=== PATIENT | male | born 1955 | race Caucasian/White ===

== ENCOUNTER 2018-04-14 08:18 | Emergency (ER) | payer BC ==
--- OUTSIDE RECORDS SUMMARY | 2018-04-14 08:20 | XMS REPORT | Summary of Care ---
:1955 Author Organization [facility] Outpatient Imaging [place] Address [address] [place], [place] [address]- Encounter HQ Encntr_alias(FIN) [id number] Date(s): 06/11/16 - 06/11/16 [facility] Outpatient [address] [phone] Discharge Disposition: Home or Self Care Attending Physician: Richard Figueroa MD Vital Signs No data available for this section Problem List No data available for this section Allergies, Adverse Reactions, Alerts No data available for this section Medications No data available for this section Results No data available for this section Immunizations No data available for this section Procedures No data available for this section Social History No data available for this section Assessment and Plan No data available for this section
--- OUTSIDE RECORDS SUMMARY | 2018-04-14 08:20 | XMS REPORT | Summary of Care ---
:1955 Author Encounter HQ Nedrantr_kristian(MARIAM) [id number] Date(s): 12/03/14 - 12/03/14 [facility] Outpatient Imaging - [address] [phone] Discharge Disposition: Home Physician Attending: Richard Figueroa MD Vital Signs No data [...]
--- OUTSIDE RECORDS SUMMARY | 2018-04-14 08:20 | XMS REPORT | Summary of Care ---
:1955 Author Organization [facility] Outpatient Imaging [place] Address [address] [place], [place] [id number]- Encounter HQ Encntr_alias(FIN) [id number] Date(s): 01/15/17 - 01/15/17 [facility] Outpatient Imaging [address], [facility] [address] [place] [address]- [phone] Discharge Disposition: Home or Self Care Attending [...]
--- OUTSIDE RECORDS SUMMARY | 2018-04-14 08:20 | XMS REPORT | Continuity of Care Document ---
:1955 Author Organization Interface Problems Problem Status Onset Classification Date Comments Source Date Reported M45.9 - Active 06/09/20 [facility] ANKYLOSING 16 [place] SPONDYLITIS OF UNSP Medications Medication Details Route Status Patient Ordering Order Source Instructions Provider Date Allergies, Adverse Reactions, Alerts Substance Category Reaction Severity Reaction Status Date Comments Source type Reported Immunizations Immunization Date Given Site Status Last Updated Comments Source Results Order Results Value Reference Date Interpretation Comments Source Name Range Spine Spine REASON FOR EXAM: M45.9. Ankylosing spondylitis of unspecified sites in spine. 01/15 - [facility] lumbar 2 lumbar - Araseli or 3 or 3 views DX views DX COMPARISON: Lumbar spine x-ray 12/03/2014 and 02/26/2011. Read by: Richard Carvajal MD Dictated Date/time: 01/15/17 18:53 Electronically Signed by: Richard Carvajal MD 01/15/17 19:07 FINAL REPORT FINDINGS: AP and lateral views of lumbar spine. 3 images are submitted. There are 5 lumbar vertebral bodies. The lumbar vertebral bodies are normally aligned. There is mild posterior disc space narrowing at L1-L2. There is minimal posterior disc space narrowing at L2-L3 and L3-L4. There are tiny lateral marginal osteophytes from L1 through L3. There are no de monstrable marginal syndesmophytes. There is no compression deformity. The pedicles appear intact. There is ankylosis of the bilateral sacroiliac joints. Also noted are surgical clips in the right upper abdomen, a bowel anastomotic staple line in the left abdomen, minimal aortic calcification and a calcified pelvic phlebolith. IMPRESSION: 1. There has been no significant interval change from 12/03/2014. 2. Mild degenerative changes of the lumbar spine as described above. 3. Bilateral sacroiliac joint ankylosis. SL: 15 Pelvis AP Pelvis AP REASON FOR EXAM: M45.9. Ankylosing spondylitis of unspecified sites in spine. 01/15 - [facility] DX /2016 - [place]eli COMPARISON: AP view of the pelvis 12/03/2014 and 02/26/2011. Read by: Richard Carvajal MD Dictated Date/time: 01/15/17 18:45 Electronically Signed by: Richard Carvajal MD 01/15/17 18:52 FINAL REPORT FINDINGS: Single AP view of the pelvis. There is stable ankylosis of the bilateral sacroiliac joints. There is a stable tiny bony spur involving the left superior pubic symphysis. There is no demonstrab le abnormality of the hips. A bowel anastomotic staple line is partially imaged in the left lower abdomen. There are calcified pelvic phleboliths. There is no demonstrable fracture or dislocation. IMPRESSION: 1. Stable findings from 12/03/2014. 2. Stable bilateral sacroiliac joint ankylosis. SL: 15 Spine Spine REASON FOR EXAM: M45.9. Ankylosing spondylitis of unspecified sites in spine. 01/[address] [facility] cervical cervical /2016 [facility] 1 view DX 1 view DX COMPARISON: Cervical spine x-ray 12/03/2014 and 02/26/2011. Read by: Richard Carvajal MD Dictated Date/time: 01/15/17 18:37 Electronically Signed by: Richard Carvajal MD 01/15/17 18:44 FINAL REPORT FINDINGS: Single lateral view of the cervical spine. There is approximately 1 to 2 mm anterolisthesis of C4 on C5, new from the comparison examinations. The remaining cervical vertebral bodies are manav lly aligned. There is no significant disc space narrowing. There is multilevel facet arthropathy which has likely progressed. There are no demonstrable marginal syndesmophytes, fracture, dislocation or prevertebral soft tissue swelling. IMPRESSION: 1. Grade 1 anterolisthesis of C4 on C5. 2. Multilevel facet arthropathy. SL: 15 Foot wo Foot wo 06/11 - [facility] contrast contrast /2015 [facility] MRI MRI EXAM: MRI of the right foot without contrast Read by: Jose Hicks MD Dictated Date/time: 06/12/16 09:28 INDICATION: Ankylosing spondylitis, right foot pain Electronically Signed by: Jose Hicks MD 06/12/16 09:31 FINAL REPORT COMPARISON: None. TECHNIQUE: Multiplanar, multisequence magnetic resonance imaging of the right forefoot was performed without the administration of intravenous gadolinium contrast. FINDINGS: Anatomic alignment is maintained across the foot. No acute bony fracture, joint dislocation, or stress-related marrow edema is seen. There is moderate osteoarthrosis of the first MTP joint wit h joint space narrowing, marginal osseous spurring, and subchondral cystic change. Mild subchondral cystic change in the lateral sesamoid bone is also incidentally noted. The visualized plantar fascia is intact. Dorsal and plantar tendons across the foot are intact. The Lisfranc's ligament complex is intact. The plantar plate complexes are all intact. No extracapsular mass or cystic fluid collection is seen. There is no evidence of Cooper's neuroma. Mild atrophy of the forefoot musculature is noted. IMPRESSION: 1. No acute bony abnormality of the right foot. 2. No ligament or tendon tear. 3. Moderate osteoarthrosis of the first MTP joint. SL: [id number] Spine Spine EXAMINATION: Lumbar spine - 2 to 3 views 12/03 - [facility] lumbar 2 lumbar - Bowen or 3 or 3 views DX views DX HISTORY: Ankylosing spondylitis Read by: Jayme Allred MD Dictated Date/time: 12/03/14 11:17 Electronically Signed by: Jayme Allred MD 12/03/14 11:20 FINAL REPORT FINDINGS: Frontal, lateral, and coned lateral views of the lumbar spine and single AP view the pelvis are performed and compared to pelvic radiograph dated 02/26/2011. There is normal alignment of the lumbar spine without listhesis. The vertebral body heights are normal without compression fracture. There is minimal L1-L2 through L2-L3 intervertebral disc space narrow ing. There is no bridging ossification identified. Cholecystectomy clips are noted. There are no acute fractures or dislocations of the pelvis. There is unchanged ankylosis of the bilateral sacroiliac joints. The sacral ala appear intact. The bilateral hip joint spaces are normal. IMPRESSION: 1. Unchanged bilateral sacroiliac joint ankylosis in keeping with the patient's history of ankylosing spondylitis. 2. Minimal L1-L2 through L2-L3 degenerative disc disease without bridging ossification identified within the lumbar spine. Pelvis AP Pelvis AP EXAMINATION: Lumbar spine - 2 to 3 views 12/03 - [facility] DX DX /2014 - [place] HISTORY: Ankylosing spondylitis Read by: Jayme Allred MD Dictated Date/time: 12/03/14 11:17 Electronically Signed by: Jayme Allred MD 12/03/14 11:20 FINAL REPORT FINDINGS: Frontal, lateral, and coned lateral views of the lumbar spine and single AP view the pelvis are performed and compared to pelvic radiograph dated 02/26/2011. There is normal alignment of the lumbar spine without listhesis. The vertebral body heights are normal without compression fracture. There is minimal L1-L2 through L2-L3 intervertebral disc space narrow ing. There is no bridging ossification identified. Cholecystectomy clips are noted. There are no acute fractures or dislocations of the pelvis. There is unchanged ankylosis of the bilateral sacroiliac joints. The sacral ala appear intact. The bilateral hip joint spaces are normal. IMPRESSION: 1. Unchanged bilateral sacroiliac joint ankylosis in keeping with the patient's history of ankylosing spondylitis. 2. Minimal L1-L2 through L2-L3 degenerative disc disease without bridging ossification identified within the lumbar spine. Spine Spine EXAMINATION: Cervical spine - 2 to 3 views 12/03 - [facility] cervical cervical /2014 - Bowen 2 or 3 2 or 3 view DX view DX HISTORY: Ankylosing spondylitis Read by: Jayme Allred MD Dictated Date/time: 12/03/14 11:13 Electronically Signed by: Jayme Allred MD 12/03/14 11:17 FINAL REPORT FINDINGS: Frontal, lateral, and odontoid views of the cervical spine are performed without comparison. There is normal alignment of the cervical spine without listhesis. There is no prevertebral soft tissue swelling. The lateral masses of C1 are well aligned with C2. There is no osseous central canal levar nosis. There is mild intervertebral displaced narrowing from C4-C5 through C5-C6. IMPRESSION: 1. Mild C4-C5 through C5-C6 degenerative disc disease. 2. No radiographic evidence of ankylosing spondylitis involving the cervical spine. Vital Signs Vital Sign Value Date Comments Source Encounters Location Location Encounter Encounter Reason Attending ADM DC Status Source Details Type Number For Provider Date Date Visit [facility] Outpt Diag [id number] [facility] 12/03 12/04 [facility] [place] /2014 [facility] [place] [facility] Outpt Diag [id number] [facility] 06/11 06/12 [facility] [place] /2015 [facility] Imaging jon Duque [facility] Outpt Diag [id number] Richard 01/15 01/16 [facility] [place] /2016 [facility] Procedures Procedure Code Date Perfomer Comments Source
[2018-04-14] MEDS ORDERED: ONDANSETRON 4 MG/2 ML VIAL ONE (09:41)
[2018-04-14] MEDS ORDERED: MORPHINE 4 MG/ML SYR ONE ×2 (09:41→11:08)
[2018-04-14] MEDS ORDERED: NA CHLORIDE 0.9% 1,000 ML ONE (09:41)
[2018-04-14 10:03] LABS: Absolute Lymphocytes (CBC) 1.9 K/uL (0.7-4.9); Absolute Monocytes 0.7 K/uL (0.1-1.3); Absolute Neutrophil 8.2 K/uL (1.8-8.0); Basophils % 0.8 % (0-1.3); Eosinophils % 1.2 % (0-4.4); Hematocrit 45.9 % (39.6-49.0); Lymphocytes % 17.2 % (15.3-44.8); MCH 33.6 pg (27.0-35.0); MCV 96.8 fL (80-100); MPV 9.2 fL (7.6-11.3); Monocytes % 6.7 % (3.3-12.3); RBC Red Blood Cell Count 4.74 M/uL (4.33-5.43)
[2018-04-14 10:14] LABS: Protime INR 0.98
[2018-04-14 10:18] LABS: Bilirubin Direct 0.1 mg/dL (0-0.2); Bilirubin Total 0.6 mg/dL (0.2-1.0); CKMB Creatine Kinase MB 1.2 ng/mL (0.3-3.6); Magnesium 2.3 mg/dL (1.8-2.4); Potassium 4.2 mmol/L (3.5-5.1); Protein, Total 7.6 g/dL (6.4-8.2)
--- NOTE | 2018-04-14 10:29 | RAD REPORT ---
EXAM DESCRIPTION: RAD - Chest Single View - 04/14/2018 10:21 am CLINICAL HISTORY: CHEST PAIN Chest pain. COMPARISON: No comparisons FINDINGS: Portable technique limits examination quality. The lungs are grossly clear. The heart is normal in size. No displaced fractures. IMPRESSION: No acute intrathoracic process suspected.
[2018-04-14] MEDS ORDERED: NITROGLYCERIN 0.4 MG/TAB SL ONE (10:35)
--- NOTE | 2018-04-14 11:03 | RAD REPORT ---
EXAM DESCRIPTION: CT - Chest For Pe Angio - 04/14/2018 10:52 am CLINICAL HISTORY: Chest pain. CHEST PAIN COMPARISON: Chest Single View dated 04/14/2018 TECHNIQUE: CT angiogram of the pulmonary arteries was performed with MIP. All CT scans are performed using dose optimization technique as appropriate and may include automated exposure control or mA/KV adjustment according to patient size. FINDINGS: No evidence of pulmonary thromboembolism. No acute aortic finding demonstrated. Subtle areas of tree-in-bud opacity are seen inferior RML and lingula as well as the medial right amber g base. The lungs demonstrate no evidence of worrisome nodule or mass. No significant pericardial or pleural fluid. Small hiatal hernia is noted. Pneumobilia is present in the upper abdomen. No concerning bony finding. IMPRESSION: No evidence of pulmonary thromboembolism. Small areas of tree-in-bud opacity is detail probably are related to mild aspiration.
--- NOTE | 2018-04-14 12:01 | EDPHYS ---
Physician Documentation [facility] Name: Mynor Cyr Jr Age: 62 yrs Sex: Male : 1955 Arrival Date: 04/14/2018 Time: 08:22 Bed 5 Private MD: Edilson Freeman B ED Physician Gael Loera HPI: 04/14 08:39 This 62 yrs old Male presents to ER via Ambulatory with complaints of THROAT kav PAIN. 08:45 The patient or guardian reports chest pain that is located primarily in the mid-sternal kav area. Onset: acutely, last night. The pain does not radiate. Associated signs and symptoms: Pertinent positives: headache, Pertinent negatives: abdominal pain, cough, dizziness, nausea, palpitations, vomiting. The chest pain is described as dull, a heaviness. Duration: The patient or guardian reports a single episode, that is still ongoing, and unchanged. Modifying factors: The symptoms are alleviated by nothing. the symptoms are aggravated by. Severity of pain: At its worst the pain was a 3 / 10. The patient has not experienced similar symptoms in the past. The patient has not recently seen a physician. Historical: - Allergies: 08:45 Remicade; sg - Home Meds: 08:45 Simponi subcutaneous subcutaneous for Ankylosing Spondylitis, Rheumatoid Arthritis sg [Active]; Pristiq oral oral for Generalized Anxiety Disorder [Active]; Magnesium Oxide Oral daily for Hypomagnesemia [Active]; Aleve Oral 1 tab for Ankylosing Spondylitis, Rheumatoid Arthritis [Active]; Ranitidine Oral [Active]; - PMHx: 08:45 Hiatal Hernia; Ankylosing Spondylitis; Rheumatoid Arthritis; GERD; sg - PSHx: 08:45 Major Abd Sx (involving pancrease); Back Surgery; sg - Immunization history:: Adult Immunizations up to date. - Social history:: Smoking status: Patient/guardian denies using tobacco. - Ebola Screening: : Patient negative for fever greater than or equal to 101.5 degrees Fahrenheit, and additional compatible Ebola Virus Disease symptoms Patient denies exposure to infectious person Patient denies travel to an Ebola-affected area in the 21 days before illness onset No symptoms or risks identified at this time. - Family history:: not pertinent. - Hospitalizations: : No recent hospitalization is reported. - History obtained from: . ROS: 08:49 Constitutional: Negative for fever, chills, and weight loss, Eyes: Negative for injury, kav pain, redness, and discharge, ENT: Negative for injury, pain, and discharge, Neck: Negative for injury, pain, and swelling, Abdomen/GI: Negative for abdominal pain, nausea, vomiting, diarrhea, and constipation, Back: Negative for injury and pain, : Negative for injury, bleeding, discharge, and swelling, MS/Extremity: Negative for injury and deformity, Skin: Negative for injury, rash, and discoloration, Neuro: Negative for headache, weakness, numbness, tingling, and seizure, Psych: Negative for depression, anxiety, suicide ideation, homicidal ideation, and hallucinations, Allergy/Immunology: Negative for hives, rash, and allergies, Endocrine: Negative for neck swelling, polydipsia, polyuria, polyphagia, and marked weight changes, Hematologic/Lymphatic: Negative for swollen nodes, abnormal bleeding, and unusual bruising. 08:49 Cardiovascular: Positive for chest pain, of the mid-sternal area, Negative for palpitations. 08:49 Respiratory: Negative for cough, dyspnea on exertion, hemoptysis, orthopnea, pleurisy, shortness of breath, sputum production, wheezing. Exam: 08:49 Constitutional: This is a well developed, well nourished patient who is awake, alert, kav and in no acute distress. Head/Face: Normocephalic, atraumatic. Eyes: Pupils equal round and reactive to light, extra-ocular motions intact. Lids and lashes normal. Conjunctiva and sclera are non-icteric and not injected. Cornea within normal limits. Periorbital areas with no swelling, redness, or edema. Neck: Trachea midline, no thyromegaly or masses palpated, and no cervical lymphadenopathy. Supple, full range of motion without nuchal rigidity, or vertebral point tenderness. No Meningismus. Chest/axilla: Normal chest wall appearance and motion. Nontender with no deformity. No lesions are appreciated. Abdomen/GI: Soft, non-tender, with normal bowel sounds. No distension or tympany. No guarding or rebound. No evidence of tenderness throughout. Back: No spinal tenderness. No costovertebral tenderness. Full range of motion. Skin: Warm, dry with normal turgor. Normal color with no rashes, no lesions, and no evidence of cellulitis. MS/ Extremity: Pulses equal, no cyanosis. Neurovascular intact. Full, normal range of motion. Neuro: Awake and alert, GCS 15, oriented to person, place, time, and situation. Cranial nerves II-XII grossly intact. Motor strength 5/5 in all extremities. Sensory grossly intact. Cerebellar exam normal. Normal gait. Psych: Awake, alert, with orientation to person, place and time. Behavior, mood, and affect are within normal limits. 08:49 ENT: Posterior pharynx: is normal, no acute changes. 08:49 Neck: External neck: is normal, no acute changes, Trachea: is midline with no obvious abnormalities, no acute changes, ROM/movement: is normal, no acute changes. 08:49 Chest/axilla: Inspection: normal, no acute changes, Palpation: no acute changes. 08:49 Respiratory: the patient does not display signs of respiratory distress, Respirations: normal, no acute changes, Breath sounds: are clear throughout, no acute changes. Vital Signs: 08:45 BP 126 / 92; Pulse 72; Resp 16 S; Pulse Ox 96% on R/A; Weight 72.57 kg (R); Pain 6/10; sg 10:32 BP 144 / 98; Pulse 72; Resp 16; Pulse Ox 100% on R/A; jb4 10:53 BP 124 / 79; Pulse 74; Resp 18; Pulse Ox 90% on R/A; jb4 10:55 BP 112 / 77; Pulse 74; Resp 17; Pulse Ox 96% on R/A; aj 10:59 BP 111 / 75; Pulse 78; Resp 12; Pulse Ox 97% on R/A; jb4 12:00 BP 108 / 68; Pulse 64; Resp 13; Pulse Ox 98% on R/A; jb4 MDM: 08:39 Medical screening is not applicable. kav 10:56 Differential diagnosis: acute myocardial infarction, chest wall pain, pulmonary kav embolus, unstable angina. Data reviewed: vital signs, nurses notes. 10:56 ECG:. kav 10:58 HEART Score: History: Slightly Suspicious (0), ECG: Normal (0), Age: > 45 and < 65 kav years (1), Risk Factors: No Risk Factors Known (0), Troponin: < or = 1 x Normal Limit (0), Total Score =. 10:58 Awaiting: CT scan results. 04/14 09:27 Order name: Basic Metabolic Panel; Complete Time: 10:04/14 09:27 Order name: CBC with Diff; Complete Time: :04/14 09:27 Order name: Ckmb; Complete Time: :04/14 09:27 Order name: CPK; Complete Time: :04/14 09:27 Order name: LFT's; Complete Time: :04/14 09:27 Order name: Magnesium; Complete Time: :04/14 09:27 Order name: NT PRO-BNP; Complete Time: :04/14 09:27 Order name: PT-INR; Complete Time: :04/14 09:27 Order name: Ptt, Activated; Complete Time: :04/14 09:27 Order name: Troponin (emerg Dept Use Only); Complete Time: :04/14 09:27 Order name: XRAY Chest (1 view); Complete Time: 10:36 04/14 10:38 Order name: CT Chest For PE Angio: r/o pe; Complete Time: 11:51 04/14 11:03 Order name: Troponin (emerg Dept Use Only): repeat troponin; Complete Time: 11:51 04/14 11:14 Order name: Urine Dipstick--Ancillary (enter results); Complete Time: 12:11 mb4 04/14 09:27 Order name: EKG; Complete Time: :27 04/14 09:27 Order name: Cardiac monitoring; Complete Time: 09:50 04/14 09:27 Order name: EKG - Nurse/Tech; Complete Time: 09:50 04/14 09:27 Order name: IV Saline Lock; Complete Time: 09:50 04/14 09:27 Order name: Labs collected and sent; Complete Time: 09:50 04/14 09:27 Order name: O2 Per Protocol; Complete Time: 09:50 04/14 09:27 Order name: O2 Sat Monitoring; Complete Time: 09:49 04/14 10:23 Order name: EKG; Complete Time: 10:23 kav EC:56 Rate is 72 beats/min. Rhythm is regular. QRS [place] is Normal. WA interval is normal. QRS kav interval is normal. QT interval is normal. No Q waves. T waves are Normal. No ST changes noted. Clinical impression: Normal ECG. Administered Medications: 09:45 Drug: NS 0.9% 1000 ml Route: IV; Rate: 1000 ml; Site: right antecubital; aa5 09:45 Drug: Zofran 4 mg Route: IVP; Site: right antecubital; aa5 09:50 Follow up: Response: No adverse reaction aa5 09:47 Drug: morphine 2 mg Route: IVP; Site: right antecubital; aa5 09:50 Follow up: Response: No adverse reaction aa5 10:45 Drug: Nitroglycerin 0.4 mg Route: Sublingual; jb4 10:55 Drug: Nitroglycerin 0.4 mg Route: Sublingual; jb4 11:00 Drug: Nitroglycerin 0.4 mg Route: Sublingual; jb4 11:22 Follow up: Response: No adverse reaction jb4 11:18 Drug: morphine 2 mg Route: IVP; Site: right forearm; aj 11:39 Follow up: Response: Pain is decreased aj Disposition: 04/14/18 12:00 Discharged to Home. Impression: Aspiration, Mile, Chest Wall Pain. - Condition is Stable. - Discharge Instructions: Chest Wall Pain, [id number]. - Prescriptions for Cephalexin 500 mg Oral Capsule - take 1 capsule by ORAL route every 12 hours for 10 days; 20 capsule. - Medication Reconciliation Form, Thank You Letter, Antibiotic Education, Prescription Opioid Use form. - Follow up: Private Physician; When: 5 - 6 days; Reason: Recheck today's complaints, Continuance of care, Re-evaluation by your physician. Follow up: Miguel Bojorquez; When: 2 - 3 days; Reason: Recheck today's complaints, Continuance of care, Re-evaluation by your physician. - Problem is new. - Symptoms have improved. Addendum: 04/16/2018 08:04 Co-signature as Attending Physician, Gael Loera MD I agree with the assessment and w a plan of care. Signatures: Dispatcher [employer] Remberto Dela Cruz RN Tonia Taylor, RN RN Gladys Andarde, TOP HAT BODY MAKER [employer] HAT BODY MAKER Lisbeth Farnsworth, RN RN iw Rajni Blanchard, RN RN aa5 Red Aldana, YA PANDYA jb4 Gael Loera MD MD wa Corrections: (The following items were deleted from the chart) 04/14 12:38 12:00 04/14/2018 12:00 Discharged to Home. Impression: Aspiration, Mile; Chest Wall iw Pain. Condition is Stable. Prescriptions for Cephalexin 500 mg Oral Capsule - take 1 capsule by ORAL route every 12 hours for 10 days; 20 capsule. and Forms are Medication Reconciliation Form, Thank You Letter, Antibiotic Education, Prescription Opioid Use. Follow up: Private Physician; When: 5 - 6 days; Reason: Recheck today's complaints, Continuance of care, Re-evaluation by your physician. Follow up: Miguel Bojorquez; When: 2 - 3 days; Reason: Recheck today's complaints, Continuance of care, Re-evaluation by your physician. Problem is new. Symptoms have improved. kav
--- NOTE | 2018-04-14 12:01 | ER ---
Nurse's Notes [facility] Name: Mynor Cyr Jr Age: 62 yrs Sex: Male : 1955 Arrival Date: 04/14/2018 Time: 08:22 Bed 5 Private MD: Edilson Freeman B Diagnosis: Aspiration, Mile;Chest Wall Pain Presentation: 04/14 08:30 Transition of care: patient was not received from another setting of care. Onset of sg symptoms was April 14, 2018. Risk Assessment: Do you want to hurt yourself or someone else? Patient reports no desire to harm self or others. Initial Sepsis Screen: Does the patient meet any 2 criteria? No. Patient's initial sepsis screen is negative. Does the patient have a suspected source of infection? No. Patient's initial sepsis screen is negative. Care prior to arrival: None. 08:30 Method Of Arrival: Ambulatory sg 08:30 Acuity: AKILAH 4 sg 08:37 Presenting complaint: Patient states: pressure in my neck and throat, intermittent, it sg comes in waves, feels like it throbs with the beat of my heart, started last night. My father in law said that some of my symptoms are a lot like his and he has cardiac problems, so i thought i should get it checked out. Historical: - Allergies: 08:45 Remicade; sg - Home Meds: 08:45 Simponi subcutaneous subcutaneous for Ankylosing Spondylitis, Rheumatoid Arthritis sg [Active]; Pristiq oral oral for Generalized Anxiety Disorder [Active]; Magnesium Oxide Oral daily for Hypomagnesemia [Active]; Aleve Oral 1 tab for Ankylosing Spondylitis, Rheumatoid Arthritis [Active]; Ranitidine Oral [Active]; - PMHx: 08:45 Hiatal Hernia; Ankylosing Spondylitis; Rheumatoid Arthritis; GERD; sg - PSHx: 08:45 Major Abd Sx (involving pancrease); Back Surgery; sg - Immunization history:: Adult Immunizations up to date. - Social history:: Smoking status: Patient/guardian denies using tobacco. - Ebola Screening: : Patient negative for fever greater than or equal to 101.5 degrees Fahrenheit, and additional compatible Ebola Virus Disease symptoms Patient denies exposure to infectious person Patient denies travel to an Ebola-affected area in the 21 days before illness onset No symptoms or risks identified at this time. - Family history:: not pertinent. - Hospitalizations: : No recent hospitalization is reported. - History obtained from: . Screenin:55 Abuse screen: Denies threats or abuse. Denies injuries from another. Nutritional aj screening: No deficits noted. Tuberculosis screening: No symptoms or risk factors identified. Fall Risk None identified. Assessment: 10:55 General: Appears in no apparent distress. comfortable, Behavior is calm, cooperative, aj appropriate for age. Pain: Complains of pain in right clavicle, left clavicle, anterior aspect of right upper chest, anterior aspect of left upper chest and mid-sternal area. Neuro: Level of Consciousness is awake, alert, obeys commands, Oriented to person, place, time, situation, Appropriate for age. Cardiovascular: Reports chest pain, Capillary refill < 3 seconds Patient's skin is warm and dry. Respiratory: Airway is patent Respiratory effort is even, unlabored, Respiratory pattern is regular, symmetrical. Respiratory: Reports pain with respiration. Derm: Skin is intact, is healthy with good turgor, Skin is pink, warm \T\ dry. normal. 12:37 Reassessment: Patient appears in no apparent distress at this time. Patient and/or iw family updated on plan of care and expected duration. Pain level reassessed. Patient is alert, oriented x 3, equal unlabored respirations, skin warm/dry/pink. Patient states feeling better. Patient states symptoms have improved. Vital Signs: 08:45 BP 126 / 92; Pulse 72; Resp 16 S; Pulse Ox 96% on R/A; Weight 72.57 kg (R); Pain 6/10; sg 10:32 BP 144 / 98; Pulse 72; Resp 16; Pulse Ox 100% on R/A; jb4 10:53 BP 124 / 79; Pulse 74; Resp 18; Pulse Ox 90% on R/A; jb4 10:55 BP 112 / 77; Pulse 74; Resp 17; Pulse Ox 96% on R/A; aj 10:59 BP 111 / 75; Pulse 78; Resp 12; Pulse Ox 97% on R/A; jb4 12:00 BP 108 / 68; Pulse 64; Resp 13; Pulse Ox 98% on R/A; jb4 ED Course: 08:22 Patient arrived in ED. rg4 08:22 Edilson Freeman MD is Private Physician. rg4 08:29 Arm band placed on. sg 08:31 Triage completed. sg 08:39 [facility] kav 08:39 Gael Loera MD is Attending Physician. kav 09:07 Remberto Farrell, RN is Primary Nurse. sg 09:50 EKG done, by machines technician. reviewed by Gladys WERNER. at1 10:19 X-ray completed. Portable x-ray completed in exam room. Patient tolerated procedure sw well. 10:22 XRAY Chest (1 view) In Process Unspecified. EDMS 10:45 Inserted saline lock: 22 gauge in right forearm, using aseptic technique. Blood aj collected. By VD director index. 10:48 CT completed. Patient tolerated procedure well. Patient moved to CT via wheelchair. sj 10:52 CT Chest For PE Angio: r/o pe In Process Unspecified. EDMS 10:55 Patient has correct armband on for positive identification. aj 11:14 Tonia Rodriguez, RN is Primary Nurse. aj 12:00 Miguel Bojorquez MD is Referral Physician. kav 12:37 No provider procedures requiring assistance completed. IV discontinued, intact, iw bleeding controlled, No redness/swelling at site. Pressure dressing applied. Administered Medications: 09:45 Drug: NS 0.9% 1000 ml Route: IV; Rate: 1000 ml; Site: right antecubital; aa5 09:45 Drug: Zofran 4 mg Route: IVP; Site: right antecubital; aa5 09:50 Follow up: Response: No adverse reaction aa5 09:47 Drug: morphine 2 mg Route: IVP; Site: right antecubital; aa5 09:50 Follow up: Response: No adverse reaction aa5 10:45 Drug: Nitroglycerin 0.4 mg Route: Sublingual; jb4 10:55 Drug: Nitroglycerin 0.4 mg Route: Sublingual; jb4 11:00 Drug: Nitroglycerin 0.4 mg Route: Sublingual; jb4 11:22 Follow up: Response: No adverse reaction jb4 11:18 Drug: morphine 2 mg Route: IVP; Site: right forearm; aj 11:39 Follow up: Response: Pain is decreased aj Outcome: 12:00 Discharge ordered by . kav 12:37 Discharged to home ambulatory, with family. iw 12:37 Condition: good 12:37 Discharge instructions given to patient, family, Instructed on discharge instructions, follow up and referral plans. medication usage, Demonstrated understanding of instructions, follow-up care, medications, Prescriptions given X 1. 12:38 Patient left the ED. iw Signatures: Dispatcher [employer] EDMS Remberto Farrell, YA RN Tonia Covarrubias, RN RN Gladys Andrade FNP FNP kav Jones, Susan sj Williams, Irene, RN RN iw Calderon, Audri RN RN aa5 Tonia Avina, electric motor fitter EKG Tat1 Michelle Ca Rubi rg4 Red Aldana, RN RN jb4
[2018-04-14 12:07] LABS: Urine Blood NEGATIVE (NEG); Urine Glucose NEGATIVE (NEG); Urine Protein NEGATIVE (NEG); Urine Specific Gravity 1.015 (1.005-1.030)
[2018-04-14 12:48] VITALS: BP 108/68; O2SAT 98
--- NOTE | 2018-04-14 16:28 | EKG ---
Test Date: 2018-04-14 Test Time: 10:25:03 Inspector Aligning: CHARLIE MEASUREMENT RESULTS: Intervals: Rate: 66 UT: 186 QRSD: 88 QT: 400 QTc: 419 [place]: P: 79 UT: 186 QRS: 47 T: 73 INTERPRETIVE STATEMENTS: Normal sinus rhythm Normal ECG Compared to ECG 04/14/2018 09:40:54 No significant changes Electronically Signed On 04-14-18 16:27:14 CDT by Miguel Bojorquez
--- NOTE | 2018-04-14 16:29 | EKG ---
Test Date: 2018-04-14 Test Time: 09:40:54 Sheep Killer: MB MEASUREMENT RESULTS: Intervals: Rate: 72 OH: 186 QRSD: 86 QT: 404 QTc: 442 [place]: P: 77 [place]: 186 QRS: 32 T: 64 INTERPRETIVE STATEMENTS: Normal sinus rhythm Normal ECG No previous ECG available for comparison Electronically Signed On 04-14-18 16:27:20 CDT by Miguel Bojorquez
== END 2018-04-14 12:38 | disposition home or self-care (01) ==
LOC: ER 08:18
DX: R07.89 Other chest pain (principal); K21.9 Gastro-esophageal reflux disease without esophagitis; F41.9 Anxiety disorder, unspecified; E83.42 Hypomagnesemia; Z88.8 Allergy status to other drugs, medicaments and biological substances
CPT/HCPCS: 36415; 71045; 71275; 80048; 80076; 81003; 82550; 82553; 83735; 83880; 84484; 85025; 85610; 85730; 93005; 99284; J2405; J7030; Q9967

== ENCOUNTER 2018-04-15 19:27 | Observation (INO) | payer BC ==
--- OUTSIDE RECORDS SUMMARY | 2018-04-15 19:29 | XMS REPORT | Continuity of Care Document ---
:1955 Author Organization Interface Problems Problem Status Onset Classification Date Comments Source Date Reported M45.9 - Active 06/09/20 [facility] ANKYLOSING 16 [place] SPONDYLITIS OF UNSP Medications Medication Details Route [...] spondylitis of unspecified sites in spine. 01/15 [facility] cervical cervical /2016 [facility] 1 view DX 1 view DX COMPARISON: [...] wo 06/11 - [facility] contrast contrast /2015 [facility] MRI MRI EXAM: MRI of the right [...] osteoarthrosis of the first MTP joint. SL: [id number] Spine Spine EXAMINATION: Lumbar spine - 2 to 3 views 12/03 - [facility] lumbar 2 lumbar - [place] or 3 or 3 views DX views [...] 12/03 - [facility] DX DX /2014 - [place] HISTORY: Ankylosing spondylitis Read by: Jayme Allred [...] - 2 to 3 views 12/03 - [facility] cervical cervical /2014 - [place] 2 or 3 2 or 3 view [...] Type Number For Provider Date Date Visit [facility] Outpt Diag [id number] [facility] 12/03 12/04 [facility] [place] /2014 [facility] [place] [facility] Outpt Diag [id number] [facility] 06/11 06/12 [facility] Services [place] /2015 [facility] jon Duque [facility] Outpt Diag [phone] [place] 01/15 01/16 [facility] Outpatient Services [place] /2016 [facility] Procedures Procedure Code Date Perfomer Comments Source
--- NOTE | 2018-04-15 20:00 | EDPHYS ---
Physician Documentation [facility] Name: Mynro Cyr Jr Age: 62 yrs Sex: Male : 1955 Arrival Date: 04/15/2018 Time: 19:29 Bed 17 Private MD: Edilson Freeman B ED Physician Otoniel Benito HPI: 04/15 19:56 This 62 yrs old Male presents to ER via Ambulatory with complaints of lenny Palpitations. 19:56 The patient presents with a history of irregular heart beat, heart racing. Context: The lenny symptoms occur at rest. Onset: The symptoms/episode began/occurred just prior to arrival, today. Duration: The patient or guardian reports multiple episodes, that wax and wane. Modifying factors: The symptoms are aggravated by nothing. The symptoms are alleviated by nothing. Associated signs and symptoms: The patient has no apparent associated signs or symptoms. Severity of symptoms: At their worst the symptoms were mild moderate in the emergency department the symptoms are unchanged. The patient has not experienced similar symptoms in the past. Historical: - Allergies: 19:34 Remicade; tl2 23:00 Phenergan; sr5 - Home Meds: 19:34 Aleve Oral 1 tab for Ankylosing Spondylitis, Rheumatoid Arthritis [Active]; Magnesium tl2 Oxide Oral daily for Hypomagnesemia [Active]; Pristiq Oral for Generalized Anxiety Disorder [Active]; Ranitidine Oral [Active]; Simponi subcutaneous for Ankylosing Spondylitis, Rheumatoid Arthritis [Active]; 23:00 Amoxicillin Oral [Active]; benadryl 12.5mg PRN sleep aid [Active]; sr5 - PMHx: 19:34 Rheumatoid Arthritis; hiatal hernia; GERD; Ankylosing Spondylitis; tl2 - PSHx: 19:34 abdominal sx; tl2 23:00 Major Abd Sx (involving pancrease); Back Surgery; sr5 - Immunization history:: Adult Immunizations up to date. - Social history:: Smoking status: Patient/guardian denies using tobacco. - Ebola Screening: : No symptoms or risks identified at this time. - Family history:: not pertinent. ROS: 19:56 Constitutional: Negative for fever, chills, and weight loss, Eyes: Negative for injury, lenny pain, redness, and discharge, ENT: Negative for injury, pain, and discharge, Neck: Negative for injury, pain, and swelling, Respiratory: Negative for shortness of breath, cough, wheezing, and pleuritic chest pain, Abdomen/GI: Negative for abdominal pain, nausea, vomiting, diarrhea, and constipation, Back: Negative for injury and pain, : Negative for injury, bleeding, discharge, and swelling, MS/Extremity: Negative for injury and deformity, Skin: Negative for injury, rash, and discoloration, Neuro: Negative for headache, weakness, numbness, tingling, and seizure. 19:56 Cardiovascular: Positive for chest pain, palpitations. Exam: 19:56 Constitutional: This is a well developed, well nourished patient who is awake, alert, lenny and in no acute distress. Head/Face: Normocephalic, atraumatic. Eyes: Pupils equal round and reactive to light, extra-ocular motions intact. Lids and lashes normal. Conjunctiva and sclera are non-icteric and not injected. Cornea within normal limits. Periorbital areas with no swelling, redness, or edema. ENT: Nares patent. No nasal discharge, no septal abnormalities noted. Tympanic membranes are normal and external auditory canals are clear. Oropharynx with no redness, swelling, or masses, exudates, or evidence of obstruction, uvula midline. Mucous membranes moist. Neck: Trachea midline, no thyromegaly or masses palpated, and no cervical lymphadenopathy. Supple, full range of motion without nuchal rigidity, or vertebral point tenderness. No Meningismus. Chest/axilla: Normal chest wall appearance and motion. Nontender with no deformity. No lesions are appreciated. Respiratory: Lungs have equal breath sounds bilaterally, clear to auscultation and percussion. No rales, rhonchi or wheezes noted. No increased work of breathing, no retractions or nasal flaring. Abdomen/GI: Soft, non-tender, with normal bowel sounds. No distension or tympany. No guarding or rebound. No evidence of tenderness throughout. Back: No spinal tenderness. No costovertebral tenderness. Full range of motion. Male : Normal genitalia with no discharge or lesions. Skin: Warm, dry with normal turgor. Normal color with no rashes, no lesions, and no evidence of cellulitis. MS/ Extremity: Pulses equal, no cyanosis. Neurovascular intact. Full, normal range of motion. Neuro: Awake and alert, GCS 15, oriented to person, place, time, and situation. Cranial nerves II-XII grossly intact. Motor strength 5/5 in all extremities. Sensory grossly intact. Cerebellar exam normal. Normal gait. Psych: Awake, alert, with orientation to person, place and time. Behavior, mood, and affect are within normal limits. 19:56 Cardiovascular: Rate: tachycardic, Rhythm: irregularly irregular, Pulses: Pulses are 4+ in bilateral radial, brachial, femoral, popliteal, posterior tibial and and dorsalis pedis arteries.. Heart sounds: normal, Edema: is not appreciated, JVD: is not appreciated. Vital Signs: 19:34 BP 113 / 92; Pulse 95; Resp 20; Temp 98.1(O); Pulse Ox 99% on R/A; Weight 80.74 kg; tl2 Height 6 ft. 2 in. (187.96 cm); Pain 0/10; 20:49 BP 95 / 80; Pulse 156; sr5 21:23 BP 114 / 68; Pulse 117; Resp 18; Pulse Ox 96% on R/A; sr5 22:04 BP 90 / 62; Pulse 110; sr5 22:55 BP 95 / 74; Pulse 104; Resp 20; Temp 98.6(O); Pulse Ox 97% on R/A; Pain 0/10; sr5 19:34 Body Mass Index 22.85 (80.74 kg, 187.96 cm) tl2 20:49 held metoprolol, till I discuss with sr5 Efrem Coma Score: 23:00 Eye Response: spontaneous(4). Verbal Response: oriented(5). Motor Response: obeys sr5 commands(6). Total: 15. MDM: 19:40 Patient medically screened. [facility] 19:56 Data reviewed: vital signs, nurses notes, lab test result(s), EKG, radiologic studies, lenny plain films. 04/15 19:56 Order name: Basic Metabolic Panel; Complete Time: 21:41 [facility] 04/15 19:56 Order name: CBC with Diff; Complete Time: 21:41 [facility] 04/15 19:56 Order name: Ckmb; Complete Time: 21:41 [facility] 04/15 19:56 Order name: CPK; Complete Time: 21:41 [facility] 04/15 19:56 Order name: LFT's; Complete Time: 21:41 [facility] 04/15 19:56 Order name: Magnesium; Complete Time: 21:41 [facility] 04/15 19:56 Order name: NT PRO-BNP; Complete Time: 21:41 [facility] 04/15 19:56 Order name: PT-INR; Complete Time: 21:41 [facility] 04/15 19:56 Order name: Ptt, Activated; Complete Time: 21:41 [facility] 04/15 19:56 Order name: Troponin (emerg Dept Use Only); Complete Time: 21:41 [facility] 04/15 19:56 Order name: TSH; Complete Time: 21:41 [facility] 04/15 19:56 Order name: Lipase; Complete Time: 21:41 [facility] 04/15 20:21 Order name: Urine Dipstick--Ancillary (enter results) [facility] 04/15 20:30 Order name: Urine Dipstick-Ancillary; Complete Time: 21:41 [facility] 04/15 19:56 Order name: XRAY Chest (1 view); Complete Time: 21:41 [facility] 04/15 19:56 Order name: EKG; Complete Time: 19:57 [facility] 04/15 19:56 Order name: Cardiac monitoring; Complete Time: 20:14 [facility] 04/15 19:56 Order name: EKG - Nurse/Tech; Complete Time: 20:14 [facility] 04/15 19:56 Order name: IV Saline Lock; Complete Time: 20:14 [facility] 04/15 20:07 Order name: CONS Physician Consult [facility] 04/15 20:07 Order name: Echo with Doppler [facility] 04/15 21:19 Order name: T4 Free; Complete Time: 21:41 [facility] 04/15 19:56 Order name: Labs collected and sent; Complete Time: 20:14 [facility] 04/15 19:56 Order name: O2 Per Protocol; Complete Time: 20:14 [facility] 04/15 19:56 Order name: O2 Sat Monitoring; Complete Time: 20:14 [facility] Administered Medications: 20:47 Drug: NS 0.9% 1000 ml Route: IV; Rate: 1 bolus; Site: right antecubital; sr5 21:18 Follow up: IV Status: Completed infusion; IV Intake: 1000ml sr5 20:48 Drug: Aspirin Chewable Tablet 162 mg Route: PO; sr5 20:48 Drug: Lovenox 1 mg/kg Route: Sub-Q; Site: right lower abdomen; sr5 22:41 Follow up: Response: No adverse reaction sr5 21:00 Drug: Magnesium Sulfate 1 grams Route: IVPB; Infused Over: 1 hrs; Site: right sr5 antecubital; 22:55 Follow up: IV Status: Completed infusion; IV Intake: 100ml sr5 21:19 Drug: Lopressor (metoprolol TARTRATE) 50 mg {Note: verified BP with Dr. Benito, BP sr5 now 112/82 post IVF bolus.} Route: PO; 22:40 Follow up: Response: Other; heart rate lowered sr5 21:20 Drug: Lopressor 5 mg {Note: BP 112/82 post IVF bolus.} Route: IVP; Site: right sr5 antecubital; 22:40 Follow up: Response: Other sr5 21:21 Drug: NS 0.9% 1000 ml Route: IV; Rate: 125 ml/hr; Site: right antecubital; sr5 22:54 Drug: Digoxin 0.5 mg {Note: HR 104, BP 95/74, SPO2 97%.} Route: IVP; Site: right sr5 antecubital; 22:54 Follow up: Response: Medication administered at discharge. sr5 Disposition: 04/15/18 19:59 Hospitalization ordered by Luz Barakat for Observation. Preliminary diagnosis are Atrial fibrillation and flutter, Other chest pain. - Bed requested for Telemetry/MedSurg (observation). - Status is Observation. sr5 - Condition is Fair. - Problem is new. - Symptoms have improved. UTI on Admission? No Signatures: Dispatcher [employer] EDNY Brenda Ocampo RN RN kl Anderson, Corey, MD MD cha Resecker, Sam RN RN sr5 Eliza Hurd RN RN tl2 Corrections: (The following items were deleted from the chart) 20:17 19:59 Hospitalization Ordered by Luz Barakat MD for Observation. Preliminary lenny diagnosis is Atrial fibrillation and flutter. Bed requested for Telemetry/MedSurg (observation). Status is Observation. Condition is Fair. Problem is new. Symptoms have improved. UTI on Admission? No. lenny 22:34 20:17 04/15/2018 19:59 Hospitalization Ordered by Luz Barkaat MD for Observation. soto Preliminary diagnosis is Atrial fibrillation and flutter; Other chest pain. Bed requested for Telemetry/MedSurg (observation). Status is Observation. Condition is Fair. Problem is new. Symptoms have improved. UTI on Admission? No. lenny 23:00 19:34 Home Meds: Amoxicillin Oral; tl2 sr5 23:20 22:34 04/15/2018 19:59 Hospitalization Ordered by Luz Barakat MD for Observation. sr5 Preliminary diagnosis is Atrial fibrillation and flutter; Other chest pain. Bed requested for Telemetry/MedSurg (observation). Status is Observation. Condition is Fair. Problem is new. Symptoms have improved. UTI on Admission? No. kl
--- NOTE | 2018-04-15 20:00 | ER ---
Nurse's Notes [facility] Name: Mynor Cyr Jr Age: 62 yrs Sex: Male : 1955 Arrival Date: 04/15/2018 Time: 19:29 Bed 17 Private MD: Edilson Freeman B Diagnosis: Atrial fibrillation and flutter;Other chest pain Presentation: 04/15 19:32 Presenting complaint: Patient states: "My heart feels like its racing and it's tl2 irregular. Denies pain or shortness of breath. Transition of care: patient was not received from another setting of care. Onset of symptoms was April 15, 2018 at 19:00. Risk Assessment: Do you want to hurt yourself or someone else? Patient reports no desire to harm self or others. Initial Sepsis Screen: Does the patient meet any 2 criteria? No. Patient's initial sepsis screen is negative. Does the patient have a suspected source of infection? No. Patient's initial sepsis screen is negative. Care prior to arrival: None. 19:32 Method Of Arrival: Ambulatory tl2 19:32 Acuity: AKILAH 3 tl2 Triage Assessment: 19:34 General: Appears in no apparent distress. uncomfortable, Behavior is cooperative, tl2 appropriate for age, anxious. Pain: Denies pain. Historical: - Allergies: 19:34 Remicade; tl2 23:00 Phenergan; sr5 - Home Meds: 19:34 Aleve Oral 1 tab for Ankylosing Spondylitis, Rheumatoid Arthritis [Active]; Magnesium tl2 Oxide Oral daily for Hypomagnesemia [Active]; Pristiq Oral for Generalized Anxiety Disorder [Active]; Ranitidine Oral [Active]; Simponi subcutaneous for Ankylosing Spondylitis, Rheumatoid Arthritis [Active]; 23:00 Amoxicillin Oral [Active]; benadryl 12.5mg PRN sleep aid [Active]; sr5 - PMHx: 19:34 Rheumatoid Arthritis; hiatal hernia; GERD; Ankylosing Spondylitis; tl2 - PSHx: 19:34 abdominal sx; tl2 23:00 Major Abd Sx (involving pancrease); Back Surgery; sr5 - Immunization history:: Adult Immunizations up to date. - Social history:: Smoking status: Patient/guardian denies using tobacco. - Ebola Screening: : No symptoms or risks identified at this time. - Family history:: not pertinent. Screenin:00 Abuse screen: Denies threats or abuse. Nutritional screening: No deficits noted. sr5 Tuberculosis screening: No symptoms or risk factors identified. Fall Risk No fall in past 12 months (0 pts). Secondary diagnosis (15 points) IV access (20 points). Ambulatory Aid- None/Bed Rest/Nurse Assist (0 pts). Gait- Normal/Bed Rest/Wheelchair (0 pts) Mental Status- Oriented to own ability (0 pts). Total Gleason Fall Scale indicates Low Risk Score (25-44 pts). Fall prevention measures have been instituted. Frequent Obs/Assesments occuring Family Present and informed to notify staff if they need to leave bedside As available Patient and Family Educated on Fall Prevention Program and strategies. Assessment: 22:56 Reassessment: Patient and/or family updated on plan of care and expected duration. Pain sr5 level reassessed. Patient is alert, oriented x 3, equal unlabored respirations, skin warm/dry/pink. Patient states feeling better. Patient states symptoms have improved. General: Appears in no apparent distress. Behavior is calm, cooperative. Pain: Denies pain. Neuro: No deficits noted. Cardiovascular: Capillary refill is brisk in bilateral fingers Patient's skin is warm and dry. Rhythm is atrial fibrillation. Respiratory: Respiratory effort is even, unlabored, Respiratory pattern is regular, symmetrical, Breath sounds are clear bilaterally. GI: No deficits noted. : No deficits noted. EENT: No deficits noted. Derm: No deficits noted. Musculoskeletal: No deficits noted. Vital Signs: 19:34 BP 113 / 92; Pulse 95; Resp 20; Temp 98.1(O); Pulse Ox 99% on R/A; Weight 80.74 kg; tl2 Height 6 ft. 2 in. (187.96 cm); Pain 0/10; 20:49 BP 95 / 80; Pulse 156; sr5 21:23 BP 114 / 68; Pulse 117; Resp 18; Pulse Ox 96% on R/A; sr5 22:04 BP 90 / 62; Pulse 110; sr5 22:55 BP 95 / 74; Pulse 104; Resp 20; Temp 98.6(O); Pulse Ox 97% on R/A; Pain 0/10; sr5 19:34 Body Mass Index 22.85 (80.74 kg, 187.96 cm) tl2 20:49 held metoprolol, till I discuss with MD brantley Vitals: 23:00 Cardiac Rhythm Assessment Atrial fibrillation. sr5 Efrem Coma Score: 23:00 Eye Response: spontaneous(4). Verbal Response: oriented(5). Motor Response: obeys sr5 commands(6). Total: 15. ED Course: 19:29 Patient arrived in ED. es 19:29 Edilson Freeman MD is Private Physician. es 19:33 Triage completed. tl2 19:34 Arm band placed on right wrist. tl2 19:40 Otoniel Benito MD is Attending Physician. lenny 19:59 Luz Barakat MD is Hospitalizing Provider. lenny 20:03 Initial lab(s) drawn, by me, sent to lab. Inserted saline lock: 20 gauge in right cc antecubital area, using aseptic technique. Blood collected. 20:09 XRAY Chest (1 view) In Process Unspecified. EDMS 20:28 ResPrabhakar snell, RN is Primary Nurse. sr5 23:00 Patient has correct armband on for positive identification. Allergy band placed. Placed sr5 in gown. Bed in low position. Call light in reach. classroom monitor on. Pulse ox on. NIBP on. Warm blanket given. Pillow given. 23:00 No provider procedures requiring assistance completed. Urine collected: clean catch sr5 specimen, EKG done, by ED staff, reviewed by Otoniel Benito MD. Patient admitted, IV remains in place. Administered Medications: 20:47 Drug: NS 0.9% 1000 ml Route: IV; Rate: 1 bolus; Site: right antecubital; sr5 21:18 Follow up: IV Status: Completed infusion; IV Intake: 1000ml sr5 20:48 Drug: Aspirin Chewable Tablet 162 mg Route: PO; sr5 20:48 Drug: Lovenox 1 mg/kg Route: Sub-Q; Site: right lower abdomen; sr5 22:41 Follow up: Response: No adverse reaction sr5 21:00 Drug: Magnesium Sulfate 1 grams Route: IVPB; Infused Over: 1 hrs; Site: right sr5 antecubital; 22:55 Follow up: IV Status: Completed infusion; IV Intake: 100ml sr5 21:19 Drug: Lopressor (metoprolol TARTRATE) 50 mg {Note: verified BP with Dr. Benito, BP sr5 now 112/82 post IVF bolus.} Route: PO; 22:40 Follow up: Response: Other; heart rate lowered sr5 21:20 Drug: Lopressor 5 mg {Note: BP 112/82 post IVF bolus.} Route: IVP; Site: right sr5 antecubital; 22:40 Follow up: Response: Other sr5 21:21 Drug: NS 0.9% 1000 ml Route: IV; Rate: 125 ml/hr; Site: right antecubital; sr5 22:54 Drug: Digoxin 0.5 mg {Note: HR 104, BP 95/74, SPO2 97%.} Route: IVP; Site: right sr5 antecubital; 22:54 Follow up: Response: Medication administered at discharge. sr5 Intake: 21:18 IV: 1000ml; Total: 1000ml. sr5 22:55 IV: 100ml; Total: 1100ml. sr5 Outcome: 19:59 Decision to Hospitalize by Provider. lenny 23:00 Admitted to Tele sr5 23:00 Condition: stable 23:00 Instructed on the need for admit. 23:20 Patient left the ED. sr5 Signatures: Dispatcher [employer] Otoniel Fowler MD MD cha Salyer, Edna es Christian, Chelsea cc Resecker, Sam RN RN sr5 Eliza Hurd RN RN tl2 Corrections: (The following items were deleted from the chart) 23:00 19:34 Home Meds: Amoxicillin Oral; tl2 sr5
--- NOTE | 2018-04-15 20:20 | RAD REPORT ---
EXAM DESCRIPTION: RAD - Chest Single View - 04/15/2018 8:09 pm CLINICAL HISTORY: PALPITATIONS Chest pain. COMPARISON: Chest Single View dated 04/14/2018 FINDINGS: Portable technique limits examination quality. The lungs are emphysematous but grossly clear. The heart is normal in size. No displaced fractures. IMPRESSION: No acute intrathoracic process suspected.
[2018-04-15 20:29] LABS: Urine Blood NEGATIVE (NEG); Urine Glucose NEGATIVE (NEG); Urine Protein NEGATIVE (NEG)
[2018-04-15 20:33] LABS: Absolute Lymphocytes (CBC) 2.9 K/uL (0.7-4.9); Absolute Monocytes 0.7 K/uL (0.1-1.3); Absolute Neutrophil 4.6 K/uL (1.8-8.0); Eosinophils % 3.1 % (0-4.4); Lymphocytes % 34.2 % (15.3-44.8); MCH 34.3 pg (27.0-35.0); MCV 98.2 fL (80-100); MPV 9.4 fL (7.6-11.3); Monocytes % 8.1 % (3.3-12.3); RBC Red Blood Cell Count 4.17 M/uL (4.33-5.43)
[2018-04-15 20:35] LABS: Protime INR 0.92
[2018-04-15] MEDS ORDERED: ASPIRIN 81 MG CHEWABLE TABLET ONE (20:37)
[2018-04-15] MEDS ORDERED: METOPROLOL TAR 50 MG TAB ONE (20:37)
[2018-04-15] MEDS ORDERED: ENOXAPARIN 80 MG/0.8 ML SQ ONE (20:37)
[2018-04-15] MEDS ORDERED: METOPROLOL TARTRATE 5 MG/5 ML INJ IV ONE (20:37)
[2018-04-15] MEDS ORDERED: MAGNESIUM SULFATE 1 gm IVPB 1 GM/100 ML BAG IV ONE (20:38)
[2018-04-15] MEDS ORDERED: NA CHLORIDE 0.9% 2,000 ML ONE (20:38)
[2018-04-15 21:00] LABS: ALT/SGPT 24 U/L (12-78); AST/SGOT 16 U/L (15-37); Albumin 3.6 g/dL (3.4-5.0); Alkaline Phosphatase 66 U/L (45-117); BUN Blood Urea Nitrogen 12 mg/dL (7-18); Bicarbonate 26 mmol/L (21-32); Bilirubin Direct < 0.1 mg/dL (0-0.2); Bilirubin Total 0.3 mg/dL (0.2-1.0); CKMB Creatine Kinase MB 1.9 ng/mL (0.3-3.6); Creatine Phosphokinase 118 U/L (39-308); Glucose Level 129 mg/dL (74-106); Lipase 304 U/L (73-393); Magnesium 2.2 mg/dL (1.8-2.4); NT PRO-BNP 206 pg/mL (<125); Protein, Total 6.8 g/dL (6.4-8.2); Sodium Level 141 mmol/L (136-145)
--- NOTE | 2018-04-15 22:02 | P.HP ---
Certification for Inpatient Patient admitted to: Observation With expected LOS: <2 Midnights Practitioner: I am a practitioner with admitting privileges, knowledge of patient current condition, hospital course, and medical plan of care. Services: Services provided to patient in accordance with Admission requirements found in Title 42 Section 412.3 of the Code of Federal Regulations Patient History Date of Service: 04/15/18 Reason for admission: Atrial fibrillation with RVR History of Present Illness: Mr Cyr is a 62-year-old male with history of rheumatoid arthritis, ankylosing spondylitis who came yesterday to ER complaining of upper chest pain. He had a CTA of chest which was negative for pulmonary embolism, but was remarkable for more areas of opacities in the right middle lung. He was diagnosed with aspiration pneumonia and was sent home with oral amoxicillin. Today he was doing okay until 7 o'clock p.m. when suddenly started feeling increasing in his heart rate. He checked his pulse with his phone alba and it was about 140s. Then he came to ED for evaluation. The patient denied any fever or chills, no chest pain today. EKG at arrival was consistent with A.fib with RVR. Initial troponin I was negative. TSH mildly elevated. Allergies infliximab [From Remicade] Allergy (Unverified 04/14/18 12:41) Unknown - Past Medical/Surgical History -: Ankylosis spondylitis -: Rheumatoid arthritis -: Hiatal hernia -: GERD -: Abdominal surgery -: But surgery - Family History Family History: Reviewed- Non-Contributory - Social History Smoking Status: Former smoker CD- Drugs: No Caffeine use: Yes Place of Residence: Home Review of Systems 10-point ROS is otherwise unremarkable Physical Examination - Physical Exam General: Alert, In no apparent distress HEENT: Atraumatic, PERRLA, Mucous membr. moist/pink, EOMI, Sclerae nonicteric Neck: Supple, 2+ carotid pulse no bruit, No LAD, Without JVD or thyroid abnormality Respiratory: Clear to auscultation bilaterally, Normal air movement Cardiovascular: Normal S1 S2, Irregular heart rate/rhythm Gastrointestinal: Normal bowel sounds, No tenderness Musculoskeletal: No tenderness Integumentary: No rashes Neurological: Normal speech, Normal strength at 5/5 x4 extr, Normal tone, Normal affect Lymphatics: No axilla or inguinal lymphadenopathy Assessment and Plan - Problems (Diagnosis) (1) Atrial fibrillation with RVR Current Visit: Yes Status: Acute (2) Ankylosing spondylitis Current Visit: Yes Status: Acute Qualifiers: Ankylosing spondylitis location: unspecified site of spine Qualified Code(s ): M45.9 - Ankylosing spondylitis of unspecified sites in spine (3) Rheumatoid arthritis Current Visit: Yes Status: Acute Qualifiers: Rheumatoid arthritis location: unspecified site Rheumatoid factor presence : unspecified presence Qualified Code(s): M06.9 - Rheumatoid arthritis, unspecified (4) Hypothyroidism Current Visit: Yes Status: Acute Qualifiers: Hypothyroidism type: unspecified Qualified Code(s): E03.9 - Hypothyroidism , unspecified (5) Pneumonia Current Visit: Yes Status: Acute Qualifiers: Pneumonia type: aspiration pneumonia Aspiration pneumonia type: unspecified Laterality: right Lung location: middle lobe of lung Qualified Code(s): J69.0 - Pneumonitis due to inhalation of food and vomit - Plan Mr. Cyr will be admitted to the hospital due to atrial fibrillation with RVR. He has been receiving IV and p.o. metoprolol, his current HR is about 120 is. Will continue oral beta-braulio. The patient had chest pain yesterday, typical per description. I will order an echocardiogram, serial cardiac enzymes and EKG, and Cardiology consult for evaluation recommendation. - Advance Directives Does patient have a Living Will: No Does patient have a Durable POA for Healthcare: No - Code Status/Comfort Care Code Status Assessed: Yes Code Status: Full Code
[2018-04-15] MEDS ORDERED: DIGOXIN 0.25 MG/ML AMP ONE (22:50)
[2018-04-15] MEDS ORDERED: NA CHLORIDE 0.9% 1,000 ML IV SCH (23:37)
[2018-04-15] MEDS ORDERED: ONDANSETRON 4 MG/2 ML VIAL IV PRN (23:37)
[2018-04-16 00:11] VITALS: BMI 22.2
[2018-04-16 05:59] LABS: Absolute Monocytes 0.6 K/uL (0.1-1.3); Absolute Neutrophil 3.2 K/uL (1.8-8.0); Eosinophils % 3.4 % (0-4.4); Lymphocytes % 42.3 % (15.3-44.8); MCH 34.8 pg (27.0-35.0); MCV 98.2 fL (80-100); MPV 9.4 fL (7.6-11.3); Monocytes % 8.4 % (3.3-12.3); RBC Red Blood Cell Count 3.87 M/uL (4.33-5.43)
[2018-04-16] MEDS ORDERED: METOPROLOL XL 50 MG TAB PO SCH (06:00)
[2018-04-16 06:15] LABS: Potassium 4.4 mmol/L (3.5-5.1)
--- NOTE | 2018-04-16 08:24 | P.PN ---
Subjective Date of Service: 04/16/18 Primary Care Provider: Dr. Freeman Chief Complaint: Atrial fibrillation with RVR Subjective: Improving (Patient doing well this morning. Rate better controlled still in atrial fibrillation) Physical Examination - Vital Signs Temperature: 97.3 F Blood Pressure: 114/76 Pulse: 80 Respirations: 17 Pulse Ox (%): 99 - Physical Exam General: Alert, In no apparent distress, Oriented x3, Cooperative HEENT: Atraumatic Neck: Supple Respiratory: Clear to auscultation bilaterally, Normal air movement Cardiovascular: Irregular heart rate/rhythm (Atrial fibrillation, rate controlled) Gastrointestinal: Normal bowel sounds, Soft and benign, Non-distended, No tenderness, No masses, No rebound, No guarding Musculoskeletal: No erythema, No tenderness, No warmth Integumentary: No tenderness/swelling, No erythema, No warmth, No cyanosis Neurological: Normal speech, Normal strength at 5/5 x4 extr, Normal tone, Normal affect Lymphatics: No axilla or inguinal lymphadenopathy - Studies Medications List Reviewed: Yes Assessment & Plan - Problems (Diagnosis) (1) Ankylosing spondylitis Current Visit: Yes Status: Chronic Plan: Patient with history of alkalosis spondylitis and rheumatoid arthritis. Will provide medication for pain. Will hold nonsteroidal anti-inflammatories as the patient is on anti coagulation therapy. Qualifiers: Ankylosing spondylitis location: unspecified site of spine Qualified Code(s ): M45.9 - Ankylosing spondylitis of unspecified sites in spine (2) Atrial fibrillation with RVR Current Visit: Yes Status: Acute Plan: Rate better controlled. Patient on metoprolol. Cardiology consulted. Await further recommendations. Anticipate changing medication to anti rhythm medication. Patient on anti coagulation therapy. The patient will likely require chronic anti coagulation therapy at discharge. (3) Pneumonia Current Visit: Yes Status: Acute Plan: Patient recently diagnosed with aspiration pneumonia. Will continue with antibiotic therapy. Recheck x-ray shows no pneumonia. Qualifiers: Pneumonia type: aspiration pneumonia Aspiration pneumonia type: unspecified Laterality: right Lung location: middle lobe of lung Qualified Code(s): J69.0 - Pneumonitis due to inhalation of food and vomit (4) Rheumatoid arthritis Current Visit: Yes Status: Chronic Plan: Will hold nonsteroidal anti-inflammatories since the patient is on anti coagulation therapy Qualifiers: Rheumatoid arthritis location: unspecified site Rheumatoid factor presence : unspecified presence Qualified Code(s): M06.9 - Rheumatoid arthritis, unspecified (5) Depression Current Visit: Yes Status: Chronic Plan: Will continue with his medication. Qualifiers: Depression Type: unspecified Qualified Code(s): F32.9 - Major depressive disorder, single episode, unspecified (6) GERD (gastroesophageal reflux disease) Current Visit: Yes Status: Chronic Plan: Will provide PPI. Qualifiers: Esophagitis presence: esophagitis presence not specified Qualified Code(s) : K21.9 - Gastro-esophageal reflux disease without esophagitis (7) Elevated TSH Current Visit: Yes Status: Acute Plan: Mild elevation in tsh. This will need to be recheck in 4-6 weeks. If significantly abnormal patient may require medication in the future. This will need to be monitored as an outpatient. Discharge Plan: Home Plan to discharge in: 48 Hours Time Spent Managing Pts Care (In Minutes): 55
[2018-04-16] MEDS ORDERED: TRAMADOL HCL 50 MG TAB PO PRN (08:25)
[2018-04-16] MEDS ORDERED: HYDROCODONE/APAP 7.5/325 MG TAB PO PRN (08:25)
--- NOTE | 2018-04-16 08:31 | EKG ---
Test Date: 2018-04-15 Test Time: 19:45:09 Gunner'S Mate M: CHERYL MEASUREMENT RESULTS: Intervals: Rate: 155 [place]: QRSD: 76 QT: 262 QTc: 420 [place]: P: [place]: QRS: 32 T: 85 INTERPRETIVE STATEMENTS: Atrial fibrillation with rapid ventricular response Nonspecific ST and T wave abnormality, probably digitalis effect Abnormal ECG Compared to ECG 04/14/2018 10:25:03 ST (T wave) deviation now present Sinus rhythm no longer present Electronically Signed On 04-16-18 08:30:46 CDT by Arnulfo Stinson
[2018-04-16] MEDS ORDERED: ENOXAPARIN 80 MG/0.8 ML SQ SCH (09:00)
[2018-04-16] MEDS: ENOXAPARIN 80 MG/0.8 ML SQ ONE ×3 (09:03→10:20)
[2018-04-16] MEDS: AMOX/K CLAV 875 MG TAB PO SCH ×2 (09:26→20:01)
[2018-04-16] MEDS: DESVENLAFAXINE SUCCINATE PO SCH (10:20)
--- NOTE | 2018-04-16 12:33 | CON ---
Chief Complaint: Heart racing. History Of Present Illness: Mr. Cyr ate some foods that were a bit salty and extra cold and then started to notice his heart racing. He went to the emergency room, where he was found to be in atri al fibrillation, rapid response. He has received Lopressor. His heart rate is lower, but he still r emains in AFib. He is presently being given Lovenox 70 b.i.d., metoprolol 50 b.i.d. The patient has a history of pancreatitis, pancreatic pseudocyst. He underwent a complicated surgery where the cyst now drains into the duodenum. There is also a Gavin-en-Y anastomosis, and we do not really know all of the details. He has never had vascular surgery, never had myocardial infarction, stroke, any sten ts. He has underlying depression. He does not have hypertension, diabetes. Does not use tobacco an d does not take any lipid medications. He has been on amoxicillin with clavulanate because of worrie s about an infection. When he came to the hospital, he had a CT angio of the chest that was negative for pulmonary embolus, but it does point out that there is a tree-in-bud abnormality consistent with mild aspiration. The lungs are emphysematous. The patient tells me he was told he had air in his b ile duct. I do not actually see any of the tests that indicate that in our records. He probably has pneumonia close to the lingula and he has emphysema. Some 25 years ago, he had an irregular heart b eat, passed a stress test, and was told not to take decongestants anymore. The arrhythmia was not AF ib. Home Medications: Have been desvenlafaxine and Augmentin. Allergies: HE REPORTS DRUG ALLERGIES TO INFLIXIMAB AND PROMETHAZINE. Physical Examination: General: He is 6 feet 2 inches, 173 pounds. HEENT: Normal. Lungs: Clear. Abdomen: Soft. HEART: Irregularly irregular, going about 80 beats per minute. No murmur or rub. EXTREMITIES: Reveal diminished, but palpable distal pulses. No abdominal bruit. No palpable aorta. His EKG this morning shows atrial fib with a heart rate of about 80, no infarction, injury, or ischem ia. Impression: The patient's atrial fibrillation is still present. We will initiate therapy with Betap jesus, changing to Xarelto. If he is in normal rhythm, he could be discharged tomorrow. If he is stil l in atrial fibrillation, we could consider doing a cardioversion. YEN Voice ID: [id number] Report ID: [id number]
[2018-04-16] MEDS: SOTALOL HCL 80 MG TAB PO SCH ×2 (16:59→17:00)
[2018-04-16] MEDS ORDERED: RIVAROXABAN 20 MG TABLET PO SCH (17:00)
[2018-04-16] MEDS: ACETAMINOPHEN 500 MG TAB PO PRN (20:57)
[2018-04-17 01:59] VITALS: O2SAT 97
[2018-04-17] MEDS: SOTALOL HCL 80 MG TAB PO SCH (05:41)
[2018-04-17 06:03] LABS: Absolute Lymphocytes (CBC) 2.7 K/uL (0.7-4.9); Absolute Monocytes 0.6 K/uL (0.1-1.3); Absolute Neutrophil 4.1 K/uL (1.8-8.0); Basophils % 1.4 % (0-1.3); Eosinophils % 4.6 % (0-4.4); Hematocrit 42.4 % (39.6-49.0); Lymphocytes % 34.9 % (15.3-44.8); MCH 34.1 pg (27.0-35.0); MPV 9.1 fL (7.6-11.3); Monocytes % 7.7 % (3.3-12.3); RBC Red Blood Cell Count 4.28 M/uL (4.33-5.43)
[2018-04-17 06:21] LABS: Magnesium 2.2 mg/dL (1.8-2.4); Potassium 4.4 mmol/L (3.5-5.1)
--- NOTE | 2018-04-17 06:28 | EKG ---
Test Date: 2018-04-17 Test Time: 01:53:19 Grade Teacher: RT MEASUREMENT RESULTS: Intervals: Rate: 63 [place]: 198 QRSD: 88 QT: 418 QTc: 427 [place]: P: 73 [place]: 198 QRS: 23 T: 35 INTERPRETIVE STATEMENTS: Normal sinus rhythm Normal ECG Compared to ECG 04/16/2018 08:41:01 Atrial fibrillation no longer present T-wave abnormality no longer present Electronically Signed On 04-17-18 06:27:02 CDT by Arnulfo Stinson
[2018-04-17] MEDS ORDERED: PANTOPRAZOLE 40MG TABLET PO SCH (06:30)
--- NOTE | 2018-04-17 06:32 | EKG ---
Test Date: 2018-04-16 Test Time: 08:41:01 Global Category Manager: LINDA MEASUREMENT RESULTS: Intervals: Rate: 85 [place]: QRSD: 84 QT: 352 QTc: 418 [place]: P: [place]: QRS: 69 T: 40 INTERPRETIVE STATEMENTS: Atrial fibrillation Nonspecific T wave abnormality, probably digitalis effect Abnormal ECG Compared to ECG 04/15/2018 19:45:09 T-wave abnormality now present ST (T wave) deviation no longer present Electronically Signed On 04-17-18 06:30:41 CDT by Arnulfo Stinson
--- NOTE | 2018-04-17 08:55 | P.PN ---
Subjective Date of Service: 04/17/18 Primary Care Provider: Dr. Freeman Chief Complaint: Atrial fibrillation with RVR Subjective: Improving, Doing well Physical Examination - Vital Signs Temperature: 97.7 F Blood Pressure: 103/67 Pulse: 61 Respirations: 17 Pulse Ox (%): 98 - Physical Exam General: Alert, In no apparent distress, Oriented x3, Cooperative HEENT: Atraumatic Neck: Supple Respiratory: Clear to auscultation bilaterally, Normal air movement Cardiovascular: Normal pulses, Regular rate/rhythm Gastrointestinal: Normal bowel sounds, Soft and benign, Non-distended, No tenderness, No masses, No rebound, No guarding Musculoskeletal: No erythema, No tenderness, No warmth Integumentary: No tenderness/swelling, No erythema, No warmth, No cyanosis Neurological: Normal speech, Normal strength at 5/5 x4 extr, Normal tone, Normal affect - Studies Medications List Reviewed: Yes Assessment & Plan - Problems (Diagnosis) (1) Ankylosing spondylitis Current Visit: Yes Status: Chronic Plan: Patient with history of alkalosis spondylitis and rheumatoid arthritis. Will provide medication for pain. Will hold nonsteroidal anti-inflammatories as the patient is on anti coagulation therapy. Patient now in normal sinus rhythm with Betapace and anti coagulation therapy. Will discuss with cardiology. Possible discharge today. Qualifiers: Ankylosing spondylitis location: unspecified site of spine Qualified Code(s ): M45.9 - Ankylosing spondylitis of unspecified sites in spine (2) Atrial fibrillation with RVR Current Visit: Yes Status: Acute Plan: Patient now in normal sinus rhythm Patient was started on Betapace and Xarelto yesterday. Possible discharge today if okay with cardiology. (3) Pneumonia Current Visit: Yes Status: Acute Plan: Patient recently diagnosed with aspiration pneumonia. Will continue with antibiotic therapy. Qualifiers: Pneumonia type: aspiration pneumonia Aspiration pneumonia type: unspecified Laterality: right Lung location: middle lobe of lung Qualified Code(s): J69.0 - Pneumonitis due to inhalation of food and vomit (4) Rheumatoid arthritis Current Visit: Yes Status: Chronic Plan: Will hold nonsteroidal anti-inflammatories since the patient is on anti coagulation therapy. May need to provide medication at discharge-tramadol for pain. 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 Qualifiers: Rheumatoid arthritis location: unspecified site Rheumatoid factor presence : unspecified presence Qualified Code(s): M06.9 - Rheumatoid arthritis, unspecified (5) Depression Current Visit: Yes Status: Chronic Plan: Will continue with his medication. Qualifiers: Depression Type: unspecified Qualified Code(s): F32.9 - Major depressive disorder, single episode, unspecified (6) GERD (gastroesophageal reflux disease) Current Visit: Yes Status: Chronic Plan: Will provide PPI. Qualifiers: Esophagitis presence: esophagitis presence not specified Qualified Code(s) : K21.9 - Gastro-esophageal reflux disease without esophagitis (7) Elevated TSH Current Visit: Yes Status: Acute Plan: Mild elevation in tsh. This will need to be recheck in 4-6 weeks. If significantly abnormal patient may require medication in the future. This will need to be monitored as an outpatient. Discharge Plan: Home Plan to discharge in: 24 Hours Time Spent Managing Pts Care (In Minutes): 55
[2018-04-17] MEDS: AMOX/K CLAV 875 MG TAB PO SCH (09:39)
[2018-04-17] MEDS: DESVENLAFAXINE SUCCINATE PO SCH (09:39)
[2018-04-17] MEDS: ACETAMINOPHEN 500 MG TAB PO PRN (10:22)
--- NOTE | 2018-04-17 12:26 | P.DS ---
Admission Date: 04/15/18 Discharge Date: 04/17/18 Primary Care Provider: Dr. Freeman Disposition: ROUTINE DISCHARGE Discharge Condition: GOOD Reason for Admission: Atrial fibrillation with RVR Consultations: Cardiology-Dr. Stinson - Problems (1) Ankylosing spondylitis Current Visit: Yes Status: Chronic Qualifiers: Ankylosing spondylitis location: unspecified site of spine Qualified Code(s ): M45.9 - Ankylosing spondylitis of unspecified sites in spine (2) Atrial fibrillation with RVR Current Visit: Yes Status: Acute (3) Pneumonia Current Visit: Yes Status: Acute Qualifiers: Pneumonia type: aspiration pneumonia Aspiration pneumonia type: unspecified Laterality: right Lung location: middle lobe of lung Qualified Code(s): J69.0 - Pneumonitis due to inhalation of food and vomit (4) Rheumatoid arthritis Current Visit: Yes Status: Chronic Qualifiers: Rheumatoid arthritis location: unspecified site Rheumatoid factor presence : unspecified presence Qualified Code(s): M06.9 - Rheumatoid arthritis, unspecified (5) Depression Current Visit: Yes Status: Chronic Qualifiers: Depression Type: unspecified Qualified Code(s): F32.9 - Major depressive disorder, single episode, unspecified (6) GERD (gastroesophageal reflux disease) Current Visit: Yes Status: Chronic Qualifiers: Esophagitis presence: esophagitis presence not specified Qualified Code(s) : K21.9 - Gastro-esophageal reflux disease without esophagitis (7) Elevated TSH Current Visit: Yes Status: Acute Brief History of Present Illness: 62-year-old male presented emergency room with chest pain and palpitations. Patient recently evaluated for possible pneumonia. Patient had been started on antibiotic therapy. In the ER patient found to be in atrial fibrillation with RVR. Patient given medication and admitted for further evaluation. Hospital Course: Patient presented with chest pain and palpitations. Patient found to have atrial fibrillation. Patient was treating the emergency room and admitted for further evaluation. Patient seen and evaluated by Cardiology. Patient was started on Betapace and anti coagulation therapy. Patient did well during the course of the stay. Patient converted to normal sinus rhythm. No chest pain or palpitations noted at discharge. At discharge patient will continue with Betapace 80 mg 1 pill twice daily and Xarelto 20 mg 1 pill daily with food. Recommendations for the patient follow up with cardiology in 1-2 weeks to follow up this hospitalization. Education on atrial fibrillation and medications will be provided. Patient with history of ankylosing spondylitis and rheumatoid arthritis. Patient will continue to follow up with Rheumatology. Recommendation to discontinue any nonsteroidal anti-inflammatories since the patient will be started on anti coagulation therapy. Will provide a limited supply of tramadol 50 mg 1 pill 3 times a day as needed for pain. Further adjustment in medication can be done by Rheumatology or his PCP. Patient may have underlying GERD. Will start Protonix 40 mg 1 pill once daily. This can be further addressed by his PCP. Patient has depression. He will continue with his medication. Patient had slight elevation in his tsh. Recommendation to recheck lab-tsh and free T4 in 2-4 weeks to monitor further. PCP can further address. Patient was recently diagnosed with pneumonia. X-ray upon admission did not show any pneumonia. Patient will continue to finish Augmentin 875 mg 1 pill twice daily force of total 7 days. Recommendation to recheck chest x-ray in 2- 4 weeks to monitor resolution. Vital Signs/Physical Exam: Temp Pulse Resp BP Pulse Ox 97.7 F 61 17 103/67 98 04/17/18 08:54 04/17/18 08:54 04/17/18 08:54 04/17/18 08:54 04/17/18 08:54 General: Alert, In no apparent distress, Oriented x3, Cooperative HEENT: Atraumatic Neck: Supple Respiratory: Clear to auscultation bilaterally, Normal air movement Cardiovascular: Normal pulses, Regular rate/rhythm Gastrointestinal: Normal bowel sounds, Soft and benign, Non-distended, No tenderness, No masses, No rebound, No guarding Musculoskeletal: No erythema, No tenderness, No warmth Integumentary: No tenderness/swelling, No erythema, No warmth, No cyanosis Neurological: Normal speech, Normal strength at 5/5 x4 extr, Normal tone, Normal affect Lymphatics: No axilla or inguinal lymphadenopathy Laboratory Data at Discharge: WBC 7.9 K/uL (4.3-10.9) 04/17/18 05:54 Hgb 14.6 g/dL (13.6-17.9) 04/17/18 05:54 Hct 42.4 % (39.6-49.0) 04/17/18 05:54 Plt Count 192 K/uL (152-406) 04/17/18 05:54 PT 10.9 SECONDS (9.5-12.5) 04/15/18 20:03 INR 0.92 04/15/18 20:03 APTT 29.3 SECONDS (24.3-36.9) 04/15/18 20:03 Sodium 143 mmol/L (136-145) 04/17/18 05:54 Potassium 4.4 mmol/L (3.5-5.1) 04/17/18 05:54 BUN 10 mg/dL (7-18) 04/17/18 05:54 Creatinine 1.00 mg/dL (0.55-1.3) 04/17/18 05:54 Glucose 88 mg/dL (74-106) 04/17/18 05:54 Magnesium 2.2 mg/dL (1.8-2.4) 04/17/18 05:54 Total Bilirubin 0.3 mg/dL (0.2-1.0) 04/15/18 20:03 AST 16 U/L (15-37) 04/15/18 20:03 ALT 24 U/L (12-78) 04/15/18 20:03 Alkaline Phosphatase 66 U/L (45-117) 04/15/18 20:03 Troponin I 0.04 ng/mL (0.0-0.045) 04/16/18 16:05 Triglycerides 118 mg/dL (<150) 04/16/18 05:12 Cholesterol 133 mg/dL (<200) 04/16/18 05:12 HDL Cholesterol 34 mg/dL (40-60) L 04/16/18 05:12 Cholesterol/HDL Ratio 3.91 04/16/18 05:12 Lipase 304 U/L (73-393) 04/15/18 20:03 Home Medications: Amox/Clavulanate [Augmentin 875-125 Tab*] 1 tab PO BID 04/16/18 Desvenlafaxine Succinate [Desvenlafaxine Succinate ER] 100 mg PO DAILY 04/16/18 Pantoprazole [Protonix Tab*] 40 mg PO DAILYAC #30 tab 04/17/18 Rivaroxaban [Xarelto] 20 mg PO DAILY #30 tablet 04/17/18 Sotalol HCl [Betapace*] 80 mg PO BID 6AM 6PM #60 tab 04/17/18 traMADol HCL [Ultram*] 50 mg PO TID PRN #15 tab 04/17/18 New Medications: Pantoprazole [Protonix Tab*] 40 mg PO DAILYAC #30 tab Rivaroxaban [Xarelto] 20 mg PO DAILY #30 tablet Sotalol HCl [Betapace*] 80 mg PO BID 6AM 6PM #60 tab traMADol HCL [Ultram*] 50 mg PO TID PRN #15 tab PRN Reason: Pain Mild Patient Discharge Instructions: 1. Patient will need to follow up with PCP in 1 week to follow up this hospitalization. 2. Patient presented with chest pain and palpitations. Patient found to have atrial fibrillation. Patient seen and evaluated by Cardiology. Patient was started on Betapace and anti coagulation therapy. Patient did well during the course of the stay. Patient converted to normal sinus rhythm. No chest pain noted at discharge. At discharge patient will continue with Betapace 80 mg 1 pill twice daily and Xarelto 20 mg 1 pill daily with food. Recommendations for the patient follow up with cardiology in 1-2 weeks to follow up this hospitalization. Education on atrial fibrillation and medications will be provided. 3. Patient with history of ankylosing spondylitis and rheumatoid arthritis. Patient will continue to follow up with Rheumatology. Recommendation to discontinue any nonsteroidal anti-inflammatories since the patient will be started on anti coagulation therapy. Will provide a limited supply of tramadol 50 mg 1 pill 3 times a day as needed for pain. Further adjustment in medication can be done by Rheumatology or his PCP. 4. Patient may have underlying GERD. At discharge patient will continue with Protonix 40 mg 1 pill once daily. This can be further addressed by his PCP. 5. Patient has depression. He will continue with his medication. 6. Patient had slight elevation in his tsh. Recommendation to recheck lab-tsh and free T4 in 2-4 weeks to monitor further. PCP can further address. 7. Patient recently diagnosed with pneumonia. Patient will continue to finish with Augmentin 875 mg 1 pill twice daily for 7 days. Recommendation to recheck chest x-ray in 2-4 weeks to monitor resolution. Diet: AHA Activity: Ad erica Time spent managing pt's care (in minutes): 55
[2018-04-17 12:50] VITALS: BP 117/76; TEMP 97.3
--- NOTE | 2018-04-17 17:07 | PN ---
Mr. Cyr seems to be doing fine. I will recommend, he be discharged, taking sotalol 80 b.i.d., ri varoxaban, and we will see him as an outpatient. He understands taking nonsteroidal anti-inflammator y drugs along with Xarelto is highly risky, will see if he can get by without those, if he has no oth er option than taking large doses of nonsteroidal anti-inflammatory drugs, we can have him evaluated for a Watchman device, but I suspect he will simply need to take the antiarrhythmic drug and accept t he higher risk of stroke. KACEY/CRISTY Voice ID: [id number] Report ID: [id number]
== END 2018-04-17 13:38 | disposition home or self-care (01) ==
LOC: ER 19:27 → ERHOLD 20:03 → 4TH 22:35
PROVIDERS: ADMIT Internal Medicine; ATTEND Internal Medicine
DX: I48.91 Unspecified atrial fibrillation (principal); M45.9 Ankylosing spondylitis of unspecified sites in spine; M06.9 Rheumatoid arthritis, unspecified; F32.9 Major depressive disorder, single episode, unspecified; K21.9 Gastro-esophageal reflux disease without esophagitis; J18.9 Pneumonia, unspecified organism; R94.6 Abnormal results of thyroid function studies
CPT/HCPCS: 36415; 71045; 80048; 80061; 80076; 81003; 82550; 82553; 83690; 83735; 83880; 84439; 84443; 84484; 85025; 85610; 85730; 93005; 96365; 96366; 96372; 96375; 99285; G0378; J1160; J1650; J3475; J7030

== ENCOUNTER 2024-03-29 00:02 | Emergency (ER) | payer BC ==
[2024-03-29] MEDS ORDERED: LIDOCAINE VISCOUS 2% 10ML ORAL SOLN ONE (00:20)
[2024-03-29 01:09] LABS: Specific Gravity 1.017 (1.005-1.030); Sqamous Epithelial None Seen /HPF (None Seen); Urine Bacteria None Seen /HPF (<20); Urine Bilirubin 1+ (Negative); Urine Blood 3+ (OVER) (Negative); Urine Clarity Extremely Turbid (Clear); Urine Color Dark-Yellow (Yellow); Urine Culture Reflex Order NOT NEEDED; Urine Glucose NEGATIVE (Negative); Urine Ketones NEGATIVE (Negative); Urine Micro Reflex YN NO BILL MICROSCOPIC; Urine Nitrite 1+ (Negative); Urine Protein 1+ (Negative); Urine RBC >50 /HPF (None Seen); Urine Urobilinogen 1+ (Normal); Urine WBC <5 /HPF (<5); Urine pH 6.5 (5.0-7.0)
--- NOTE | 2024-03-29 01:23 | ER ---
Nurse's Notes [facility] Name: Mynor Cyr Jr Age: 68 yrs Sex: Male : 1955 Arrival Date: 03/29/2024 Time: 00:02 Bed 8 Private MD: Diagnosis: Postop dysuria, hematuria Presentation: 03/29 00:17 Chief complaint: Patient states: Had a urolift done today at [facility] with Dr. liz Hou. Now when I urinate the tip of my penis is in excruciating pain. Coronavirus screen: Client denies travel out of the [place] in the last 14 days. At this time, the client does not indicate any symptoms associated with coronavirus-19. Ebola Screen: Patient negative for fever greater than or equal to 101.5 degrees Fahrenheit, and additional compatible Ebola Virus Disease symptoms Patient denies exposure to infectious person. Patient denies travel to an Ebola-affected area in the 21 days before illness onset. No symptoms or risks identified at this time. Initial Sepsis Screen: Does the patient meet any 2 criteria? No. Patient's initial sepsis screen is negative. Does the patient have a suspected source of infection? No. Patient's initial sepsis screen is negative. Risk Assessment: Do you want to hurt yourself or someone else? Patient reports no desire to harm self or others. Onset of symptoms was March 29, 2024. 00:17 Method Of Arrival: Ambulatory vc1 00:17 Acuity: AKILAH 4 vc1 Historical: - Allergies: 00:27 Phenergan; vc1 00:27 Remicade; vc1 - PMHx: 00:27 Ankylosing Spondylitis; GERD; hiatal hernia; Rheumatoid Arthritis; vc1 - PSHx: 00:27 Pancreatic cyst (to); vc1 - Immunization history:: Adult Immunizations up to date. - Infectious Disease History:: Denies. - Social history:: Smoking status: Patient denies any tobacco usage or history of. Assessment: 00:47 Pain: Complains of pain in pelvis. Neuro: No deficits noted. Cardiovascular: No jm12 deficits noted. Respiratory: No deficits noted. GI: No deficits noted. No signs and/or symptoms were reported involving the gastrointestinal system. : Reports pain with urination. EENT: No deficits noted. No signs and/or symptoms were reported regarding the EENT system. Derm: No deficits noted. No signs and/or symptoms reported regarding the dermatologic system. Musculoskeletal: No deficits noted. No signs and/or symptoms reported regarding the musculoskeletal system. Vital Signs: 00:17 Pain 10/10; vc1 01:00 BP 145 / 75; Pulse 92; Resp 18; Temp 98.2; Pulse Ox 99% ; Pain 8/10; 12 00:17 Pain Scale: Adult vc1 01:00 Pain Scale: Adult [facility] ED Course: 00:03 Patient arrived in ED. im 00:09 Mynor Iverson MD is Attending Physician. sp3 00:27 Triage completed. vc1 00:27 Arm band placed on right wrist. vc1 00:47 Alvares cath inserted, using sterile technique, 16 Fr., by ut, balloon inflated, to [facility] gravity drainage, urine specimen collected. 00:[address] [facility] 01:23 Romero Hou MD is Referral Physician. sp3 Administered Medications: 00:48 Drug: Viscous Lidocaine Mucous Membrane Liquid (4 %) 5 ml Mucous Membrane once Route: [facility] Mucous Membrane; 01:32 Drug: HYDROcodone-acetaminophen PO 5 mg-325 mg 2 tabs PO once Route: PO; [facility] Outcome: 01:23 Discharge ordered by . sp3 01:[address] [facility] 01:43 Condition: stable 01:43 Discharge instructions given to patient, family, Instructed on discharge instructions, follow up and referral plans. alvares care Demonstrated understanding of instructions, follow-up care, 01:[address] [facility] Signatures: Mynor Iverson MD MD sp3 Krysta Peralta RN RN vc1 Mili Ferguson Kellie Estrella RN RN [facility]
--- NOTE | 2024-03-29 01:24 | EDPHYS ---
Physician Documentation [facility] Name: Mynor Cyr Jr Age: 68 yrs Sex: Male : 1955 Arrival Date: 03/29/2024 Time: 00:02 Bed 8 Private MD: MARI Physician Mynor Iverson HPI: 03/29 00:46 This 68 yrs old Male presents to ER via Ambulatory with complaints of Post Surgical sp3 Pain - today, Pain With Urination. 00:46 68-year-old male with a history of ankylosing spondylitis, rheumatoid arthritis, GERD sp3 presents with postoperative dysuria and groin pain after a bladder lift/UroLift surgery performed today [facility] on 03/28/2024. Dr. Hou was the urologist. No complications and prior to discharge patient had the option to have a Stanley catheter but was able to void and so was sent home without one. Patient has had expected bloody urine since the surgery. He denies any other symptoms including fever, back pain, upper abdominal pain, vomiting, diarrhea, bleeding anywhere else, or any other signs or symptoms on ROS at this time.. Historical: - Allergies: 00:27 Phenergan; vc1 00:27 Remicade; vc1 - PMHx: 00:27 Ankylosing Spondylitis; GERD; hiatal hernia; Rheumatoid Arthritis; vc1 - PSHx: 00:27 Pancreatic cyst (to); vc1 - Immunization history:: Adult Immunizations up to date. - Infectious Disease History:: Denies. - Social history:: Smoking status: Patient denies any tobacco usage or history of. ROS: 00:47 Constitutional: Negative for fever, chills, and weight loss, Eyes: Negative for injury, sp3 pain, redness, and discharge, ENT: Negative for injury, pain, and discharge, Neck: Negative for injury, pain, and swelling, Cardiovascular: Negative for chest pain, palpitations, and edema, Respiratory: Negative for shortness of breath, cough, wheezing, and pleuritic chest pain, Back: Negative for injury and pain, MS/Extremity: Negative for injury and deformity, Skin: Negative for injury, rash, and discoloration, Neuro: Negative for headache, weakness, numbness, tingling, and seizure, Psych: Negative for depression, anxiety, suicide ideation, homicidal ideation, and hallucinations, Allergy/Immunology: Negative for hives, rash, and allergies, Endocrine: Negative for neck swelling, polydipsia, polyuria, polyphagia, and marked weight changes, Hematologic/Lymphatic: Negative for swollen nodes, abnormal bleeding, and unusual bruising, 00:47 All other systems are negative, Exam: 00:48 Constitutional: This is a well developed, well nourished patient who is awake, alert, sp3 and in no acute distress. Head/Face: Normocephalic, atraumatic. Eyes: Pupils equal round and reactive to light, extra-ocular motions intact. Lids and lashes normal. Conjunctiva and sclera are non-icteric and not injected. Cornea within normal limits. Periorbital areas with no swelling, redness, or edema. Chest/axilla: Normal chest wall appearance and motion. Nontender with no deformity. No lesions are appreciated. Cardiovascular: Regular rate and rhythm with a normal S1 and S2. No gallops, murmurs, or rubs. Normal PMI, no JVD. No pulse deficits. Respiratory: Lungs have equal breath sounds bilaterally, clear to auscultation and percussion. No rales, rhonchi or wheezes noted. No increased work of breathing, no retractions or nasal flaring. Abdomen/GI: Soft, non-tender, with normal bowel sounds. No distension or tympany. No guarding or rebound. No evidence of tenderness throughout. Back: No spinal tenderness. No costovertebral tenderness. Full range of motion. Male : Normal genitalia with no discharge or lesions. Skin: Warm, dry with normal turgor. Normal color with no rashes, no lesions, and no evidence of cellulitis. MS/ Extremity: Pulses equal, no cyanosis. Neurovascular intact. Full, normal range of motion. Neuro: Awake and alert, GCS 15, oriented to person, place, time, and situation. Cranial nerves II-XII grossly intact. Motor strength 5/5 in all extremities. Sensory grossly intact. Cerebellar exam normal. Normal gait. Vital Signs: 00:17 Pain 10/10; vc1 01:00 BP 145 / 75; Pulse 92; Resp 18; Temp 98.2; Pulse Ox 99% ; Pain 8/10; jm12 00:17 Pain Scale: Adult vc1 01:00 Pain Scale: Adult jm12 MDM: 00:09 Patient medically screened. sp3 00:48 Data reviewed: vital signs, nurses notes, lab test result(s). ED course: This sp3 68-year-old male postoperative day 1 from UroLift surgery. Differential diagnosis includes urine infection, postoperative infection, among others. Will obtain urine analysis and place Stanley catheter with viscous lidocaine and follow-up with Dr. Hou tomorrow. Patient is already on cephalexin and will change to other antibiotic if indicated based on UA. Patient improved after Stanley catheter placement.. 01:21 ED course: UA demonstrates no infection with no white blood cells and no bacteria. Will sp3 discharge home with Stanley bag and follow-up with Dr. Hou.. 03/29 00:15 Order name: [facility]; Complete Time: 01:09 sp3 03/29 00:15 Order name: Stanley; Complete Time: 00:48 sp3 Administered Medications: 00:48 Drug: Viscous Lidocaine Mucous Membrane Liquid (4 %) 5 ml Mucous Membrane once Route: [facility] Mucous Membrane; 01:32 Drug: HYDROcodone-acetaminophen PO 5 mg-325 mg 2 tabs PO once Route: PO; [facility] Disposition Summary: 03/29/24 01:23 Discharge Ordered Notes: Location: Home sp3 Condition: Stable sp3 Diagnosis - Postop dysuria, hematuria sp3 Followup: sp3 - With: Romero Hou MD - When: Upon discharge from the Emergency Department - Reason: Continuance of care Discharge Instructions: - Discharge Summary Sheet sp3 - Indwelling Urinary Catheter Care, Adult sp3 Forms: - Medication Reconciliation Form sp3 - Antibiotic Education sp3 - Prescription Opioid Use sp3 - Patient Portal Instructions sp3 - Leadership Thank You Letter sp3 Signatures: Dispatcher [employer] EDMS Mynor Iverson MD MD sp3 Krysta Peralta RN RN vc1 Kellie Estrella, YA RN jm12 Corrections: (The following items were deleted from the chart) 00:16 00:16 Urinalysis W/Microscopic+U.LAB.BRZ ordered. EDMS EDMS
[2024-03-29] MEDS ORDERED: HYDROCODONE/APAP 5/325 MG TAB ONE (01:33)
[2024-03-29 11:15] VITALS: BP 145/75; TEMP 98.2; O2SAT 99
== END 2024-03-29 01:44 | disposition home or self-care (01) ==
LOC: ER 00:02
PROC: 0T9B30Z Drainage of Bladder with Drainage Device, Percutaneous Approach (ICD-10-PCS; principal; 2024-03-29)
DX: R30.0 Dysuria (principal); R31.9 Hematuria, unspecified; Z98.890 Other specified postprocedural states
CPT/HCPCS: 81001

== ENCOUNTER 2024-10-08 07:54 | Emergency (ER) | payer BC ==
[2024-10-08] MEDS ORDERED: dilTIAZem HCL 25 MG/5 ML VIAL IV ONE (08:19)
--- NOTE | 2024-10-08 08:30 | RAD REPORT ---
Procedure: Chest Single View HISTORY: Chest pain COMPARISON: 2023 FINDINGS: Mild reticular nodular opacity right upper lobe. Left lung appears clear. No significant pleural effusion noted. The heart is normal size. IMPRESSION: Mild reticular nodular opacity right upper lobe equivocal for a mild infiltrate.
[2024-10-08 08:42] LABS: Absolute Basophils 0.1 K/uL (0-0.5); Absolute Eosinophils 0.2 K/uL (0-0.5); Absolute Lymphocytes (CBC) 1.8 K/uL (0.7-4.9); Absolute Monocytes 0.9 K/uL (0.1-1.3); Absolute Neutrophil 8.5 K/uL (1.8-8.0); Eosinophils % 1.4 % (0-4.4); Hematocrit 42.4 % (39.6-49.0); Hemoglobin 14.4 g/dL (13.6-17.9); Lymphocytes % 16.1 % (15.3-44.8); MCH 32.6 pg (27.0-35.0); MPV 8.3 fL (7.6-11.3); Monocytes % 7.4 % (3.3-12.3); Neutrophils % 74.1 % (41.7-73.7); Platelets 210 thou/uL (152-406); RBC Red Blood Cell Count 4.42 M/uL (4.33-5.43)
[2024-10-08 08:47] LABS: Protime INR 1.53
[2024-10-08 08:57] LABS: Anion Gap 8.1 mEq/L (5.0-15.0); Magnesium 2.1 mg/dL (1.6-2.4); Potassium 4.1 mEq/L (3.5-5.1)
--- NOTE | 2024-10-08 09:54 | EDPHYS ---
Physician Documentation [facility] Name: Mynor Cyr Jr Age: 69 yrs Sex: Male : 1955 Arrival Date: 10/08/2024 Time: 07:54 Bed 14 Private MD: ED Physician Raji Huntley HPI: 10/08 08:15 This 69 yrs old Male presents to ER via Ambulatory with complaints of ec2 Palpitations. 08:15 Patient arrives today for evaluation of palpitations. Reports history of atrial ec2 fibrillation, states that he has noted some palpitations. Reports that he takes Xarelto occasionally. Reports no difficulty breathing or chest pain. Reports he has occasional cramps and subsequently takes magnesium. No vomiting or diarrhea.. Historical: - Allergies: 08:13 Phenergan; hb 08:13 Remicade; hb - PMHx: 08:13 Ankylosing Spondylitis; GERD; hiatal hernia; Rheumatoid Arthritis; hb - PSHx: 08:13 Pancreatic cyst; hb - Immunization history:: Adult Immunizations up to date. - Infectious Disease History:: chronic respiratory pseudomonas. - Social history:: Smoking status: Patient denies any tobacco usage or history of. ROS: 08:16 Constitutional: as per hpi ec2 Exam: 08:16 Constitutional: GEN: NAD Head: atraumatic Eyes: EOMI Ears: External ears are ec2 normal. CV: Tachycardia, irregular rhythm. LUNGS: no respiratory distress ABD: non-distended SKIN: no evidence of rashes MSK: no evidence of trauma Vital Signs: 08:11 BP 118 / 87; Pulse 114; Resp 19; Temp 97.9; Pulse Ox 100% on R/A; Weight 77.11 kg; hb Height 6 ft. 2 in. ; Pain 0/10; 08:30 BP 118 / 87; Pulse 75; Resp 15; Pulse Ox 97% on R/A; ko1 09:05 BP 108 / 79; Pulse 80; Resp 16; Pulse Ox 97% ; ko1 08:11 Body Mass Index 21.83 (77.11 kg, 187.96 cm) hb 08:11 Pain Scale: Adult hb MDM: 08:01 Medical Screening Exam initiated ec2 08:17 Data reviewed: vital signs, nurses notes. ED course: Patient arrives today for ec2 evaluation of palpitations. EKG obtained, independently reviewed and interpreted by me, shows atrial flutter with variable conduction, rate of 103, no acute ST segment elevations, intervals are nonactionable. Will obtain lab work, chest x-ray. Will give the patient diltiazem given the tachycardia.. 09:45 ED course: Repeat EKG independently reviewed and interpreted by me, shows more regular ec2 rate at [address] segment elevations.. 09:52 ED course: On reassessment patient is rate controlled, subjectively feels better as ec2 well. Patient with normal blood pressures. Patient has Xarelto at home and instructed him to restart this medication. Patient already on sotalol and instructed him to continue taking this. In regards to possible infiltrate on chest x-ray, instructed him we need to start antibiotics, states that he has 2-month supplies of Augmentin at home that he has not been using and he will initiate this. I instructed him to take 875 twice a day for 7 days and to follow-up with Dr. James. Patient discharged home. Turn precautions given.. 10/08 08:11 Order name: Basic Metabolic Panel; Complete Time: 09:07 ec2 10/08 08:11 Order name: CBC with Diff; Complete Time: 09:07 ec2 10/08 08:11 Order name: NT PRO-BNP; Complete Time: 09:07 ec2 10/08 08:11 Order name: PT-INR; Complete Time: 09:07 ec2 10/08 08:11 Order name: Troponin HS; Complete Time: 09:07 ec2 10/08 08:12 Order name: Magnesium; Complete Time: 09: ec2 10/08 08:11 Order name: XRAY Chest (1 view); Complete Time: 08:33 ec2 10/08 08:11 Order name: Cardiac monitoring; Complete Time: 08:12 ec2 10/08 08:11 Order name: EKG - Nurse/Tech; Complete Time: 08: ec2 10/08 08:11 Order name: IV Saline Lock; Complete Time: : ec2 10/08 08:11 Order name: Labs collected and sent; Complete Time: 08:34 ec2 10/08 08:11 Order name: O2 Per Protocol; Complete Time: 08: ec2 10/08 08:11 Order name: O2 Sat Monitoring; Complete Time: 08:12 ec2 10/08 09:08 Order name: EKG - Nurse/Tech; Complete Time: 09:52 ec2 Administered Medications: 08:30 Drug: Diltiazem IVP 10 mg IVP once; Over 2 minutes Route: IVP; Site: right forearm; ko1 08:45 Follow up: Response: No adverse reaction ko1 Disposition Summary: 10/08/24 09:53 Discharge Ordered Condition: Stable ec2 Diagnosis - Atrial Fibrillation, Pneumonia ec2 Followup: ec2 - With: Shaw James MD - When: 1 week - Reason: Recheck today's complaints Discharge Instructions: - Discharge Summary Sheet ec2 - Community-Acquired Pneumonia, Adult, [id number] ec2 - Atrial Fibrillation, [id number] ec2 Forms: - Medication Reconciliation Form ec2 - Antibiotic Education ec2 - Prescription Opioid Use ec2 - Patient Portal Instructions ec2 - Leadership Thank You Letter ec2 Signatures: Dispatcher [employer] EDRadha Victoria RN RN Wandy Murry RN RN ko1 Raji Huntley MD MD ec2 Corrections: (The following items were deleted from the chart) 08:12 08:12 BASIC METABOLIC PANEL+C.LAB.BRZ ordered. EDMS EDMS 08:12 08:12 CBC+H.LAB.BRZ ordered. EDMS EDMS 08:12 08:12 PROBNP+C.LAB.BRZ ordered. EDMS EDMS 08:12 08:12 PROTIME (+INR)+COAG.LAB.BRZ ordered. EDMS EDMS 08:12 08:12 Troponin High Sensitivity+C.LAB.BRZ ordered. EDMS EDMS 08:12 08:12 Chest Single View+RAD.RAD.BRZ ordered. EDMS EDMS
--- NOTE | 2024-10-08 09:54 | ER ---
Nurse's Notes [facility] Name: Mynor Cyr Jr Age: 69 yrs Sex: Male : 1955 Arrival Date: 10/08/2024 Time: 07:54 Bed 14 Private MD: Diagnosis: Atrial Fibrillation, Pneumonia Presentation: 10/08 08:11 Chief complaint: Palpitations and mild SOB upon waking today, took one leftover Xarelto hb from previous afib event and his normal morning Sotalol + ASA 81 mg [employer]. Coronavirus screen: At this time, the client does not indicate any symptoms associated with coronavirus-19. Ebola Screen: No symptoms or risks identified at this time. Initial Sepsis Screen: Does the patient meet any 2 criteria? No. Patient's initial sepsis screen is negative. Does the patient have a suspected source of infection? No. Patient's initial sepsis screen is negative. Risk Assessment: Do you want to hurt yourself or someone else? Patient reports no desire to harm self or others. Onset of symptoms was October 08, 2024. 08:11 Method Of Arrival: Ambulatory 08:11 Acuity: AKILAH 3 hb Triage Assessment: 08:13 General: Appears in no apparent distress. Behavior is calm, cooperative. Pain: Denies hb pain. Neuro: Level of Consciousness is awake, alert, obeys commands, Oriented to person, place, time, situation. Cardiovascular: Reports palpitations, shortness of breath, Rhythm is atrial fibrillation with rapid ventricular response. Respiratory: Respiratory effort is even, unlabored, Respiratory pattern is regular, symmetrical. Historical: - Allergies: 08:13 Phenergan; hb 08:13 Remicade; hb - PMHx: 08:13 Ankylosing Spondylitis; GERD; hiatal hernia; Rheumatoid Arthritis; hb - PSHx: 08:13 Pancreatic cyst; hb - Immunization history:: Adult Immunizations up to date. - Infectious Disease History:: chronic respiratory pseudomonas. - Social history:: Smoking status: Patient denies any tobacco usage or history of. Screenin:35 [facility] ED Fall Risk Assessment (Adult) History of falling in the last 3 months, ko1 including since admission No falls in past 3 months (0 pts) Confusion or Disorientation No (0 pts) Intoxicated or Sedated No (0 pts) Impaired Gait No (0 pts) Mobility Assist Device Used No (0 pt) Altered Elimination No (0 pt) Score/Fall Risk Level 0 - 2 = Low Risk Oriented to surroundings, Maintained a safe environment, Educated pt \T\ family on fall prevention, incl call for assistance when getting out of bed, Assessed \T\ reinforced patient's understanding of fall precautions, Hourly rounding (assess needs \T\ fall precautionary measures) done. Abuse screen: Denies threats or abuse. Denies injuries from another. Nutritional screening: No deficits noted. Tuberculosis screening: No symptoms or risk factors identified. Assessment: 08:20 General: Appears in no apparent distress. Behavior is calm, cooperative, appropriate ko1 for age. Pain: Denies pain. Neuro: No deficits noted. Cardiovascular: Reports palpitations. Respiratory: No deficits noted. GI: No deficits noted. No signs and/or symptoms were reported involving the gastrointestinal system. : No deficits noted. No signs and/or symptoms were reported regarding the genitourinary system. EENT: No deficits noted. No signs and/or symptoms were reported regarding the EENT system. Derm: No deficits noted. No signs and/or symptoms reported regarding the dermatologic system. Musculoskeletal: No deficits noted. No signs and/or symptoms reported regarding the musculoskeletal system. Vital Signs: 08:11 BP 118 / 87; Pulse 114; Resp 19; Temp 97.9; Pulse Ox 100% on R/A; Weight 77.11 kg; hb Height 6 ft. 2 in. ; Pain 0/10; 08:30 BP 118 / 87; Pulse 75; Resp 15; Pulse Ox 97% on R/A; ko1 09:05 BP 108 / 79; Pulse 80; Resp 16; Pulse Ox 97% ; ko1 08:11 Body Mass Index 21.83 (77.11 kg, 187.96 cm) hb 08:11 Pain Scale: Adult hb ED Course: 07:56 Patient arrived in ED. ec2 08:01 Raji Huntley MD is Attending Physician. ec2 08:09 Wandy Murry, YA is Primary Nurse. ko1 08:10 Client placed on continuous cardiac and pulse oximetry monitoring. NIBP monitoring hb applied. clinical reviewer on. Pulse ox on. NIBP on. 08:10 EKG done, by ED staff, reviewed by Raji Huntley MD. hb 08:12 Triage completed. hb 08:14 Arm band placed on. hb 08:18 XRAY Chest (1 view) In Process Unspecified. EDMS 08:25 No provider procedures requiring assistance completed. Inserted saline lock: 20 gauge ko1 in right forearm, using aseptic technique. Blood collected. Flushed with 10 mL NS. Patient maintains SpO2 saturation greater than 95% on room air. 08:34 Basic Metabolic Panel Sent. ko1 08:34 CBC with Diff Sent. ko1 08:34 NT PRO-BNP Sent. ko1 08:34 PT-INR Sent. ko1 08:34 Troponin HS Sent. ko1 08:34 Magnesium Sent. ko1 08:35 Patient has correct armband on for positive identification. Allergy band placed. Bed in ko1 low position. Call light in reach. Side rails up X 1. Provided Education on: labs, meds. Door closed. Noise minimized. Lights dimmed. Warm blanket given. Pillow given. 08:35 Initial lab(s) drawn, by me, sent to lab. ko1 09:53 Shaw James MD is Referral Physician. ec2 09:53 IV discontinued, intact, bleeding controlled, No redness/swelling at site. Pressure ko1 dressing applied. Administered Medications: 08:30 Drug: Diltiazem IVP 10 mg IVP once; Over 2 minutes Route: IVP; Site: right forearm; ko1 08:45 Follow up: Response: No adverse reaction ko1 Medication: 08:35 VIS not applicable for this client. ko1 Outcome: 09:53 Discharge ordered by . ec2 09:53 Discharged to home ambulatory, with family, ko1 09:53 Condition: stable 09:53 Discharge instructions given to patient, family, Instructed on discharge instructions, follow up and referral plans. Demonstrated understanding of instructions, follow-up care, 10:01 Patient left the ED. ko1 Signatures: Dispatcher [employer] EDMS Radha Reed RN RN hb Oliver, Kathy, RN RN ko1 Raji Huntley MD MD ec2 Corrections: (The following items were deleted from the chart) 08:15 08:11 BP 118 / 87; Pulse 114bpm; Resp 19bpm; Pulse Ox 100% RA; Temp 97.9F; Pain 0/10, hb Adult; hb 08:38 08:20 BP 118 / 87; Pulse 75bpm; Resp 15bpm; Pulse Ox 97% RA; ko1 ko1
[2024-10-08 10:06] VITALS: TEMP 97.9
[2024-10-08 10:07] VITALS: O2SAT 97
[2024-10-08 10:08] VITALS: BP 108/79
== END 2024-10-08 10:01 | disposition home or self-care (01) ==
LOC: ER 07:54
DX: I48.91 Unspecified atrial fibrillation (principal); J18.9 Pneumonia, unspecified organism; Z79.01 Long term (current) use of anticoagulants
CPT/HCPCS: 36415; 71045; 80048; 83735; 83880; 84484; 85025; 85610; 93005; 96374; 99285